=== PATIENT | female | born 1955 | race Caucasian/White ===

== ENCOUNTER 2020-01-17 13:34 | Outpatient (CLI) | payer MEDICARE, SELFPAY ==
--- NOTE | ~2020-01-17 | CT_ITS ---
EXAMINATION:CT lung screening DATE: 01/17/2020 14:14 INDICATION: Personal history of tobacco dependence. Current smoker with 51 pack year history. TECHNIQUE: Computed tomography (CT) of the chest was performed without intravenous contrast. Automate d exposure control and iterative reconstruction technique were employed. The dose-length product (DLP ) was 89.75 mGy-cm. COMPARISON: None. FINDINGS: There is mild emphysema. There is mild atelectasis bilaterally. There is mild scarring at t he lung apices. There are a few scattered 1-2 mm nodules in the lungs. No pleural effusion. The heart size is normal. There are coronary artery calcifications. No pericardial effusion. There is a small sliding hiatal hernia. There is mild thoracic spondylosis. IMPRESSION: 1. Lung-RADS category 2: Benign appearance or behavior. Continue annual screening with noncontrast lo w-dose chest CT in 12 months. Reviewed, dictated and finalized at location A. STERED NURSE FLOAT POOL IMPRESSION: 1. Lung-RADS category 2: Benign appearance or behavior. Continue annual screeni ng with noncontrast low-dose chest CT in 12 months.
--- NOTE | ~2020-01-17 | MM_ITS ---
EXAMINATION: MM screening go[place] BI w jose francisco HISTORY: Screening mammogram TECHNIQUE: Craniocaudal and mediolateral oblique 3-D tomosynthesis images were obtained and synthetic 2-D images were generated. CAD analysis was submitted and interpreted. COMPARISON: No prior mammogram is available for comparison at this institution. BREAST PARENCHYMAL COMPOSITION: There are scattered areas of fibroglandular density. FINDINGS: There are numerous bilateral benign calcifications. There is no evidence of suspicious mass , calcification, or architectural distortion to suggest malignancy in either breast. There has been n o suspicious interval change. IMPRESSION: 1. No mammographic evidence of malignancy. 2. Recommend routine screening mammography in one year. BI-RADS Category 2: Benign finding(s). Reviewed, dictated and finalized at location A. OR INVESTIGATOR
== END 2020-01-17 13:35 | disposition home or self-care (01) ==
PROVIDERS: PCP Internal Medicine; Visit Provider Nurse Practitioner
DX: Z12.31 Encounter for screening mammogram for malignant neoplasm of breast (principal); Z12.2 Encounter for screening for malignant neoplasm of respiratory organs; Z87.891 Personal history of nicotine dependence
CPT/HCPCS: 77063; 77067; G0297

== ENCOUNTER 2020-02-02 00:29 | Outpatient (CLI) | payer MEDICARE, SELFPAY ==
[2020-02-02 18:58] LABS: SARS-CoV-2 RNA PCR Negative
== END 2020-02-02 00:30 | disposition home or self-care (01) ==
LOC: ANHCOVIDDT 00:29
PROVIDERS: PCP Internal Medicine; Visit Provider Internal Medicine Gastroenterology
DX: Z01.812 Encounter for preprocedural laboratory examination (principal); Z20.828 Contact with and (suspected) exposure to other viral communicable diseases
CPT/HCPCS: 87635; C9803; U0003

== ENCOUNTER 2020-02-05 01:47 | Day surgery (SDC) | payer MEDICARE, SELFPAY ==
[2020-01-30 10:19] VITALS: BMI 31.2
--- NOTE | 2020-02-04 09:52 | WPDANESEPPF ---
Anes - Initial Pre Proc Eval Procedure: Operation Date: 02/05/20 11:15 Proposed Procedures p Screening Colonoscopy - Manuel Royal MD Date/Time: 02/04/20 09:52 Surgeon: Manuel Royal MD Pre Op Diagnosis: Neoplasm Screening Patient Data Age: 64 Gender: F Height: 1.6 m Weight: 80 kg Allergies Allergy/AdvReac Type Severity Reaction Status Date / Time morphine Allergy Unknown Unable to Verified 02/05/20 10:00 sleep Penicillins Allergy Unknown Rash Verified 02/05/20 10:00 Home Medications Medication Instructions Recorded Confirmed Type oxycodone myristate 18 mg capsule 18 mg PO BID 01/24/19 01/30/20 History sprinkle extended release 12hr(DON'T CRUSH) meloxicam 15 mg tablet 15 mg PO DAILY #90 tablet 10/23/19 01/30/20 Rx trazodone 50 mg tablet See Rx Instructions .ROUTE 12/24/19 01/30/20 Rx .COMPLEX #30 tablet sodium,potassium,mag sulfates 17.5 354 ml PO .COMPLEX #354 ml 12/25/19 Rx gram-3.13 gram-1.6 gram oral soln cyclobenzaprine 10 mg tablet See Rx Instructions .ROUTE 02/01/20 Rx .COMPLEX #90 tablet atorvastatin 20 mg tablet See Rx Instructions .ROUTE 02/04/20 Rx .COMPLEX #90 tablet paroxetine HCl [Paxil] 40 mg PO DAILY 02/05/20 01/30/20 History Patient hx anesthesia problems: none Family hx anesthesia problems: none PMFSH Past Medical History Medical History (Updated 02/04/20 @ 09:53 by Schuyler Cordova DO) Bipolar disorder Body mass index (bmi) 31.0-31.9, adult COPD (chronic obstructive pulmonary disease) Depressive disorder History of endometrial cancer History of tobacco abuse Mixed hyperlipidemia Neuropathy, lower extremity Social History Social History Smoking packs per day: 1 Smoking cigarettes per day: 20.0 Years smoked: 51 Smoking pack-years: 51.00 Smoking status: Current every day smoker Tobacco type: cigarettes Alcohol intake: current Drinks per week: 2 Substance use: never Substance use type: does not use Living arrangements: with family Spiritual care concerns: No Anes - Eval Final PreProcedure Day of Procedure 02/04/20 09:52 Patient weight: obese Heart: regular rate and rhythm Lungs: clear to auscultation and normal air movement Airway: Mallampati scale class II Neurological: alert and oriented Last oral intake: >/= 8 hours ASA classification: III Emergent: no Anesthetic plan: proceed Anesthesia type and monitoring: general GIVS and standard monitoring Informed Consent: The patient's anesthetic plan and its attendant risks and benefits were discussed with the patient/family/POA. Questions were solicited and answers provided to the satisfaction of the patient/family/POA.
[2020-02-05 10:03] VITALS: BP 162/93; PULSE 93; RESP 20; TEMP 36.6; O2SAT 98; BMI 29.8
[2020-02-05] MEDS: LACTATED RINGERS 1,000 ML 150 ML IV CONT (10:14)
--- NOTE | 2020-02-05 10:32 | PM.HPGS ---
History of Present Illness History of Present Illness Consent: Risks, benefits, and alternatives have been discussed and questions answered. Patient agrees to proceed with procedure. Chief complaint: Neoplasm Screening Narrative: Lydia Albert is a 64 year old female here for first screening colonoscopy Review of Systems Constitutional: Constitutional: Denies headache(s) and Denies weakness Eyes: Eyes: Denies blurry vision ENT: Reports Normal hearing present, Denies headache(s) and Denies neck pain Cardiovascular: Cardiovascular: Denies chest pain and Denies dyspnea Respiratory: Respiratory: Denies dyspnea Gastrointestinal: Gastrointestinal: Reports no additional gastrointestinal complaints Genitourinary: Genitourinary: Denies dysuria Musculoskeletal: Musculoskeletal: Denies neck pain Integumentary/Breasts: Skin/Breast: Denies dry skin Neurologic: Reports Normal hearing present, Denies headache(s) and Denies weakness Psychiatric: Psychiatric: Denies anxiety Endocrine: Endocrine: Denies change in body appearance Hematologic/Lymphatic: Hematologic/Lymphatic: Denies easy bleeding Allergic/Immunologic: Allergic/Immunologic: Denies urticaria [facility] Past Medical History Medical History (Updated 02/04/20 @ 09:53 by Schuyler Cordova, ) Bipolar disorder Body mass index (bmi) 31.0-31.9, adult COPD (chronic obstructive pulmonary disease) Depressive disorder History of endometrial cancer History of tobacco abuse Mixed hyperlipidemia Neuropathy, lower extremity Social History Social History (Reviewed 12/21/19 @ 12:32 by Chen Velazco [facility]) Smoking packs per day: 1 Smoking cigarettes per day: 20.0 Years smoked: 51 Smoking pack-years: 51.00 Smoking status: Current every day smoker Tobacco type: cigarettes Alcohol intake: current Drinks per week: 2 Substance use: never Substance use type: does not use Living arrangements: with family Spiritual care concerns: No Meds Home Medications and Allergies Home Medications Medication Instructions Recorded Confirmed Type oxycodone myristate 18 mg capsule 18 mg PO BID 01/24/19 01/30/20 History sprinkle extended release 12hr(DON'T CRUSH) meloxicam 15 mg tablet 15 mg PO DAILY #90 tablet 10/23/19 01/30/20 Rx trazodone 50 mg tablet See Rx Instructions .ROUTE 12/24/19 01/30/20 Rx .COMPLEX #30 tablet sodium,potassium,mag sulfates 17.5 354 ml PO .COMPLEX #354 ml 12/25/19 Rx gram-3.13 gram-1.6 gram oral soln cyclobenzaprine 10 mg tablet See Rx Instructions .ROUTE 02/01/20 Rx .COMPLEX #90 tablet atorvastatin 20 mg tablet See Rx Instructions .ROUTE 02/04/20 Rx .COMPLEX #90 tablet paroxetine HCl [Paxil] 40 mg PO DAILY 02/05/20 01/30/20 History Allergies Allergy/AdvReac Type Severity Reaction Status Date / Time morphine Allergy Unknown Unable to Verified 02/05/20 10:00 sleep Penicillins Allergy Unknown Rash Verified 02/05/20 10:00 Vital Signs Vital Signs - 24 hr 02/05/20 10:03 Temperature 97.9 F Pulse Rate 93 Respiratory Rate 20 Blood Pressure 162/93 H Pulse Oximetry 98 Exam Const: General: comfortable and no acute distress HENMT: General nose exam: Normal nares present Eyes: General: appearance normal, both eyes and all related structures Neck: Neck: no JVD Resp: Auscultation: clear to auscultation bilaterally Cardio: Rate: regular rate Rhythm: regular rhythm GI: Inspection: non-distended GI Palp: Yes Soft to palpation Skin: General skin exam: normal color Neuro: General: gait normal Speech: normal speech Extrem: General: normal to inspection Psych: Mental Status: mental status grossly normal Assessment and Plan Assessment and plan (1) Screening for colon cancer: Code(s): Z12.11 - Encounter for screening for malignant neoplasm of colon Status: Acute Assessment and Plan: will proceed with colonoscopy
[2020-02-05 10:59] VITALS: BP 119/75; PULSE 84; RESP 18; O2SAT 99
[2020-02-05 11:09] VITALS: BP 126/51; PULSE 80; RESP 22; O2SAT 99
[2020-02-05 11:19] VITALS: BP 136/77; PULSE 77; RESP 20; O2SAT 100
== END 2020-02-05 11:36 | disposition home or self-care (01) ==
PROVIDERS: PCP Internal Medicine; Visit Provider Internal Medicine Gastroenterology
PROC: 0DJD8ZZ Inspection of Lower Intestinal Tract, Via Natural or Artificial Opening Endoscopic (ICD-10-PCS; CPT 45378; principal; 2020-02-05 11:15)
DX: Z12.11 Encounter for screening for malignant neoplasm of colon (principal); D12.4 Benign neoplasm of descending colon; D12.3 Benign neoplasm of transverse colon; K57.30 Diverticulosis of large intestine without perforation or abscess without bleeding; K64.8 Other hemorrhoids; F31.9 Bipolar disorder, unspecified; J44.9 Chronic obstructive pulmonary disease, unspecified; F17.210 Nicotine dependence, cigarettes, uncomplicated; Z85.42 Personal history of malignant neoplasm of other parts of uterus; E78.2 Mixed hyperlipidemia; G57.90 Unspecified mononeuropathy of unspecified lower limb; E66.8 Other obesity; Z68.28 Body mass index [BMI] 28.0-28.9, adult
CPT/HCPCS: 45380; 45385; 88305; J2704; J7120

== ENCOUNTER 2021-06-04 17:36 | Outpatient (CLI) | payer MEDICARE, SELFPAY ==
--- NOTE | ~2021-06-04 | MM_ITS ---
EXAMINATION: MM screening [place] BI w jose francisco HISTORY: Screening mammogram TECHNIQUE: Craniocaudal and mediolateral oblique 3-D tomosynthesis images were obtained and synthetic 2-D images were generated. CAD analysis was submitted and interpreted. COMPARISON: 01/17/2020 bilateral screening mammogram BREAST PARENCHYMAL COMPOSITION: There are scattered areas of fibroglandular density. FINDINGS: There are several 5 mm or smaller masses in the lower central and lower outer right breast. There is suggestion of focal architectural distortion in the outer left breast at mid depth on CC pro jection. An approximately 1.5 x 1.9 cm asymmetric opacity is noted anteriorly in the mid to lower out er left breast on CC projection. Bilateral diagnostic mammography and bilateral breast ultrasound examination are recommended.. IMPRESSION: 1. Right breast masses and left architectural distortion and asymmetric opacity 2. Bilateral diagnostic mammography and bilateral breast ultrasound examination are recommended BI-RADS Category 0: Incomplete: Needs additional imaging evaluation. Reviewed, dictated and finalized at location A.
== END 2021-06-04 17:37 | disposition home or self-care (01) ==
LOC: ANHIMG 17:43
PROVIDERS: PCP Internal Medicine; Visit Provider Nurse Practitioner
DX: Z12.31 Encounter for screening mammogram for malignant neoplasm of breast (principal); R92.8 Other abnormal and inconclusive findings on diagnostic imaging of breast
CPT/HCPCS: 77063; 77067

== ENCOUNTER 2021-06-11 12:16 | Outpatient (CLI) | payer MEDICARE, SELFPAY ==
--- NOTE | ~2021-06-11 | MMUS_ITS ---
EXAMINATION: MM diagnostic goyo BI w jose francisco, US breast BI complete HISTORY: Follow-up bilateral breast masses TECHNIQUE: Additional 3-D tomosynthesis images of breasts were performed and synthetic 2-D images wer e generated. CAD analysis was submitted and interpreted. High resolution bilateral complete breast ul trasound was performed. COMPARISON: Comparison to multiple prior studies sequentially, with oldest reviewed study dated 04/2019. BREAST PARENCHYMAL COMPOSITION: FINDINGS: MAMMOGRAPHIC FINDINGS: There are developing bilateral breast masses some of which are partially obscured by fibroglandular t issue. The largest dominant masses located in the upper outer quadrant of the left breast, middle thi rd. There are benign-appearing breast calcifications. ULTRASOUND: Complete bilateral US of all 4 quadrants of the breasts and retroareolar region was reviewed. Right breast: There are multiple cysts of the breasts bilaterally of varying size. In addition in the right breast at 1:00, 3 cm from the nipple there is an oval circumscribed hypoechoic 6 mm mass witho ut posterior features or internal vascularity. In the right axilla there is a normal-appearing 9 mm l ymph node. Left breast: Multiple cysts, largest measuring approximately 1 cm. At 12:30, 1 cm from the nipple the re is an oval hypoechoic mass measuring 8 mm with parallel orientation, no internal vascularity and n o posterior features, likely benign. At 3:00, 1 cm from the nipple there is an irregular shaped hypoe choic mass with some angular margins measuring 8 mm maximum dimension. There is mixed posterior atten uation. No internal vascularity. In the left axilla there is normal. Lymph nodes. IMPRESSION: 1. Irregular hypoechoic mass of the left breast at 3:00, 1 cm from the nipple. Ultrasound-guided left breast biopsy recommended. BI-RADS Category 4. 2. Additional likely benign bilateral breast masses are identified by ultrasound. Six-month follow-up bilateral ultrasound recommended to assess stability. Reviewed, dictated and finalized at location A. IMPRESSION: 1. Irregular hypoechoic mass of the left breast at 3:00, 1 cm from the nipple. Ultrasound-guided left breast biopsy recommended. BI-RADS Category 4. 2. Additional likely benign bilateral breast masses are identified by ultrasoun d. Six-month follow-up bilateral ultrasound recommended to assess stability.
== END 2021-06-11 12:17 | disposition home or self-care (01) ==
LOC: ANHIMG 12:20
PROVIDERS: PCP Internal Medicine; Visit Provider Nurse Practitioner
DX: R92.8 Other abnormal and inconclusive findings on diagnostic imaging of breast (principal); N60.02 Solitary cyst of left breast; N60.01 Solitary cyst of right breast; N63.12 Unspecified lump in the right breast, upper inner quadrant; N63.25 Unspecified lump in the left breast, overlapping quadrants
CPT/HCPCS: 76641; 77062; 77066; G0279

== ENCOUNTER 2021-06-23 12:47 | Outpatient (CLI) | payer MEDICARE, SELFPAY ==
--- NOTE | ~2021-06-23 | MMUS_ITS ---
MM post biopsy invasive LT, US breast biopsy LT w image EXAMINATION: US GUIDED NEEDLE BIOPSY WITH VAC UUM ASSISTANCE DATE: 06/23/2021 15:32 CDT INDICATION: Left breast mass seen on recent examination. Ultrasound-guided core biopsy is requested to evaluate for malignancy. TECHNIQUE AND FINDINGS: The risks and potential benefits of the procedure were discussed with the patient, and written inform ed consent was obtained. After sterile preparation of the left breast, 1% lidocaine was utilized for local anesthesia. 1% lidocaine with epinephrine was used for deep anesthesia. A 10G vacuum-assisted biopsy gun needle was advanced through to the outer edge of the region of inter est from a superior approach utilizing sonographic guidance. A total of 4 tissue core samples were o btained through the lesion. An Inrad tissue marker clip was then placed at the biopsy site. Hemostas is was achieved. The patient tolerated procedure well and there was no evidence of immediate complication. The patien t was given verbal instructions partly is from the department. Left breast mammograms to document ti ssue marker clip placement. The tissue samples were submitted to surgical pathology for histologic an alysis. IMPRESSION: 1. Successful ultrasound-guided vacuum-assisted biopsy of left breast mass with tissue marker placem ent. Please refer to pathology report for histologic analysis. Reviewed, dictated and finalized at location A. IMPRESSION: 1. Successful ultrasound-guided vacuum-assisted biopsy of left breast mass wit h tissue marker placement. Please refer to pathology report for histologic anal ysis.
== END 2021-06-23 12:48 | disposition home or self-care (01) ==
PROVIDERS: PCP Internal Medicine; Visit Provider Nurse Practitioner
DX: R92.8 Other abnormal and inconclusive findings on diagnostic imaging of breast (principal)
CPT/HCPCS: 19083; 88305; A4648

== ENCOUNTER 2021-11-18 13:58 | Emergency (ER) | payer MEDICARE, SELFPAY ==
[2021-11-18 14:03] VITALS: BP 149/86; PULSE 100; RESP 15; TEMP 36.7; O2SAT 99
[2021-11-18] MEDS: DOXYCYCLINE HYCLATE 100 MG TABLET PO (14:33)
--- NOTE | 2021-11-18 14:57 | ED.FALL ---
HPI - Fall General Chief Complaint: Fall Stated Complaint: fall Time Seen by Provider: 11/18/21 14:13 History of Present Illness HPI Narrative: Patient is a 66-year-old female here for evaluation of 2 lesions to her shins sustained in an accident 5 days ago. States that she was cleaning up broken glass when she accidentally scraped her bilateral shins against a fragment of glass. She cleansed the wound with soap and water in addition to hydrogen peroxide. Since then she has been covering the area with antibiotic ointment but she notes that there is some surrounding redness to the wounds which prompted her ED evaluation. She denies any fevers, chills, nausea, vomiting or shortness of breath. Her tetanus is up-to-date as of 2016. Related Data Home Medications Medication Instructions Recorded Confirmed omega-3 fatty acids 1,000 mg 1,000 mg PO DAILY 12/15/20 06/22/21 capsule (Fish Oil Concentrate) cholecalciferol (vitamin D3) 50 50 mcg PO DAILY 06/22/21 06/22/21 mcg (2,000 unit) tablet Allergies Allergy/AdvReac Type Severity Reaction Status Date / Time morphine Allergy Intermediate Unable to Verified 11/18/21 14:11 sleep Penicillins Allergy Unknown Rash Verified 11/18/21 14:11 Review of Systems Review of Systems: Gen: Denies fevers or chills Eyes: Denies eye pain or visual change ENT: Denies congestion Respiratory: Denies shortness of breath or cough CV: Denies chest pain or palpitations GI: Denies abdominal pain nausea, emesis or diarrhea : denies burning, urgency, frequency or hematuria Musculoskeletal: Denies back pain or muscle pain Neuro: Denies numbness, tingling, weakness or focal weakness Skin: Reports scrapes to bilateral shins Except as documented, all other systems reviewed and negative PMF Past Medical History Medical History Bipolar disorder Body mass index (bmi) 31.0-31.9, adult COPD (chronic obstructive pulmonary disease) Depressive disorder History of endometrial cancer History of tobacco abuse Mixed hyperlipidemia Neuropathy, lower extremity Social History Social History Smoking packs per day: 0.5 Smoking cigarettes per day: 10.0 Years smoked: 51 Smoking pack-years: 25.50 Smoking status: Current some day smoker Tobacco type: cigarettes Alcohol intake: current Drinks per week: 1 Alcohol use details: social Substance use: never Substance use type: does not use Gender identity (if verbalized by the patient): Female Spiritual care concerns: No Exam Narrative: APPEARANCE: Well appearing, no pain in distress, well-nourished. Head: Normocephalic and atraumatic. EYES: PERRLA/EOMI, conjunctivae clear NOSE: No nasal drainage EARS: External ear normal in appearance THROAT: Oropharynx is clear. Mucous membranes are moist. NECK: Supple. No adenopathy, no masses. RESPIRATORY: Airway patent, respirations nonlabored. Clear to auscultation bilaterally, no rales, rhonchi, wheezing. CARDIOVASCULAR: Regular rate and rhythm without murmurs, rubs, or gallops. ABDOMINAL: Normoactive bowel sounds. Soft, nontender, nondistended. No rebound tenderness or guarding. MUSCULOSKELETAL: Extremities are warm and well-perfused. Moves all extremities well. No edema. NEURO: Normal speech. No focal neurologic deficits. SKIN: Patient has a 2 x 3 cm abrasion to the right turner with a 0.5 cm circumferential erythema. Central eschar. There is a 1 x 2 cm abrasion to the left anterior turner with about 1 mm of surrounding erythema. PSYCHIATRIC: Normal affect/mood. Course Vital Signs Vital signs: Vital Signs Temperature 98.1 F 11/18/21 14:03 Pulse Rate 100 11/18/21 14:03 Respiratory Rate 15 11/18/21 14:03 Blood Pressure 149/86 H 11/18/21 14:03 Pulse Oximetry 99 11/18/21 14:03 Temperature 98.1 F 11/18/21 14:03 Pulse Rate 100 11/18/21 14:03 Res
== END 2021-11-18 14:50 | disposition home or self-care (01) ==
LOC: ANHED 14:37
PROVIDERS: Emergency Provider Emergency Medicine; PCP Internal Medicine
DX: L03.116 Cellulitis of left lower limb (principal); L03.115 Cellulitis of right lower limb; J44.9 Chronic obstructive pulmonary disease, unspecified; E78.2 Mixed hyperlipidemia; G62.9 Polyneuropathy, unspecified; F31.9 Bipolar disorder, unspecified; Z85.44 Personal history of malignant neoplasm of other female genital organs; F17.210 Nicotine dependence, cigarettes, uncomplicated
CPT/HCPCS: 99283; A9270

== ENCOUNTER 2022-02-23 12:18 | Emergency (ER) | payer MEDICARE, SELFPAY ==
[2022-02-23 12:40] VITALS: BP 108/60; PULSE 99; RESP 16; TEMP 36.3; O2SAT 98
[2022-02-23 13:32] LABS: Influenza A QL RT-PCR Negative (Negative); Influenza B QL RT-PCR Negative (Negative); SARS-CoV-2 RNA PCR Positive
--- NOTE | 2022-02-23 13:39 | ED.URI ---
HPI - URI/Sore Throat General Chief Complaint: Upper Respiratory Infection Stated Complaint: upper respiratory symptoms Time Seen by Provider: 02/23/22 13:02 History of Present Illness HPI Narrative: 66-year-old female presents to the emergency room for evaluation of sinus congestion, postnasal drip, rhinorrhea, sneezing diarrhea and body aches intermittently for 2 weeks. States symptoms of gotten worse over the past couple of days. Denies any shortness of breath or difficulty breathing. Denies fever. Denies chest pain. Has been taking multiple [id number] medications with limited improvement. Related Data Home Medications Medication Instructions Recorded Confirmed omega-3 fatty acids 1,000 mg 1,000 mg PO DAILY 12/15/20 01/05/22 capsule (Fish Oil Concentrate) cholecalciferol (vitamin D3) 50 50 mcg PO DAILY 06/22/21 01/05/22 mcg (2,000 unit) tablet Allergies Allergy/AdvReac Type Severity Reaction Status Date / Time morphine Allergy Intermediate Unable to Verified 01/05/22 13:07 sleep Penicillins Allergy Unknown Rash Verified 01/05/22 13:07 [facility] Past Medical History Medical History Bipolar disorder Body mass index (bmi) 31.0-31.9, adult COPD (chronic obstructive pulmonary disease) Depressive disorder History of endometrial cancer History of tobacco abuse Mixed hyperlipidemia Neuropathy, lower extremity Social History Social History (Updated 01/05/22 @ 13:18 by Brianne Gomez MA) Smoking packs per day: 0.5 Smoking cigarettes per day: 10.0 Years smoked: 51 Smoking pack-years: 25.50 Smoking status: Current some day smoker Tobacco type: cigarettes Alcohol intake: current Drinks per week: 1 Alcohol use details: social Substance use: never Substance use type: does not use Lack of Transportation: No Lack of Food: Sometimes True Current Housing: I Have Housing Concerned About Future Housing: No Difficulty Paying Gas/Electric Bills: No Difficulty Paying for Meds: YES Currently Unemployed: No Education: Trade/Vocational Certificate Difficulty w/ Childcare or Family Care: No Gender identity (if verbalized by the patient): Female Spiritual care concerns: No Course Vital Signs Vital signs: Vital Signs Temperature 36.3 C L 02/23/22 12:40 Pulse Rate 99 02/23/22 12:40 Respiratory Rate 16 02/23/22 12:40 Blood Pressure 108/60 02/23/22 12:40 Pulse Oximetry 98 02/23/22 12:40 Temperature 36.3 C L 02/23/22 12:40 Pulse Rate 99 02/23/22 12:40 Respiratory Rate 16 02/23/22 12:40 Blood Pressure 108/60 02/23/22 12:40 Pulse Oximetry 98 02/23/22 12:40 MDM - URI/Sore Throat Lab Data Labs: Lab Results 02/23/22 Range/Units 12:48 Influenza A (RT-PCR) Negative (Negative) Influenza B (RT-PCR) Negative (Negative) SARS-CoV-2 RNA (RT-PCR) Positive A Discharge Plan Discharge Clinical Impression: COVID Patient Disposition: Home, Self-Care Condition: Stable Instructions: Antibiotic Form, COVID-19 (Coronavirus Disease 2019) (ED) Additional Instructions: Male today Tylenol and ibuprofen as needed for body aches. Continue taking Mucinex DM for your cough and antidiarrheal medicine for diarrhea. Prescriptions: No Action omega-3 fatty acids [Fish Oil Concentrate] 1,000 mg capsule 1,000 mg PO DAILY cholecalciferol (vitamin D3) 50 mcg (2,000 unit) tablet 50 mcg PO DAILY rosuvastatin 40 mg tablet 40 mg PO DAILY Qty: 90 1RF pregabalin [Lyrica] 100 mg capsule 100 mg PO BID Qty: 60 3RF zolpidem 10 mg tablet 10 mg PO QHS PRN (Reason: insomnia) Qty: 30 3RF Farxiga 5 mg tablet 5 mg PO DAILY Qty: 30 6RF cyclobenzaprine 10 mg tablet See Rx Instructions .ROUTE .COMPLEX Qty: 270 1RF Dose Instruction: TAKE 1 TABLET BY MOUTH 3 TIMES DAILY Rx Instructions: TAKE 1 TABLET BY MOUTH 3 TIMES DA
== END 2022-02-23 14:05 | disposition home or self-care (01) ==
PROVIDERS: Emergency Medicine; Emergency Provider Nurse Practitioner Family; PCP Internal Medicine
DX: U07.1 COVID-19 (principal)
CPT/HCPCS: 87636; 99283

== ENCOUNTER 2022-06-16 14:51 | Outpatient (CLI) | payer MEDICARE, SELFPAY ==
--- NOTE | ~2022-06-16 | CT_ITS ---
EXAMINATION:CT lung screening DATE: 06/16/2022 15:16 INDICATION: Personal history of nicotine dependence. Current smoker with 40 pack year history. TECHNIQUE: Computed tomography (CT) of the chest was performed without intravenous contrast. Automate d exposure control and iterative reconstruction technique were employed. The dose-length product (DLP ) was 151.56 mGy-cm. COMPARISON: Chest CT 01/17/2020 FINDINGS: There is mild emphysema. There is mild scarring at the lung apices. There is mild atelectas is in the lower lobes. There is a chronic 4 mm nodule in left lower lobe. No pleural effusion. The he art size is normal. There are coronary artery calcifications. No pericardial effusion. There is a sma ll sliding hiatal hernia. Thoracolumbar dextroscoliosis is noted. There are changes of posterior fusi on procedure in lumbar spine. IMPRESSION: 1. Lung-RADS category 2: Benign appearance or behavior. Continue annual screening with noncontrast lo w-dose chest CT in 12 months. Reviewed, dictated and finalized at location A. IMPRESSION: 1. Lung-RADS category 2: Benign appearance or behavior. Continue annual screeni ng with noncontrast low-dose chest CT in 12 months.
== END 2022-06-16 14:52 | disposition home or self-care (01) ==
PROVIDERS: PCP Family Medicine; Visit Provider Family Medicine
DX: Z12.2 Encounter for screening for malignant neoplasm of respiratory organs (principal); F17.210 Nicotine dependence, cigarettes, uncomplicated
CPT/HCPCS: 71271

== ENCOUNTER 2022-08-25 14:52 | Inpatient (IN) | payer MEDICARE, SELFPAY ==
--- NOTE | ~2022-08-25 | US_ITS ---
EXAMINATION: US renal BI DATE: 08/26/2022 09:16 INDICATION: Acute renal failure TECHNIQUE: Multiple grayscale and Doppler ultrasound images of the kidneys were obtained. COMPARISON: CT, 08/25/2022 FINDINGS: The right kidney measures 11.1 x 5.7 x 6.0 cm. The small right kidney stone noted on the [facility] CT is not definitely identified. The left kidney measures 12.8 x 7.1 x 5.4 cm. The kidneys d emonstrate normal parenchymal echogenicity. There is no hydronephrosis. The bladder is normal. IMPRESSION: 1. Normal kidneys without hydronephrosis. Reviewed, dictated and finalized at location L.
--- NOTE | ~2022-08-25 | CT_ITS ---
EXAMINATION: CT abdomen pelvis wo con DATE: 08/25/2022 16:35 INDICATION: Abdominal pain. Diarrhea. TECHNIQUE: Computed tomography (CT) of the abdomen and pelvis was performed without intravenous contr ast. Automated exposure control and iterative reconstruction technique were employed. The dose-length product was 803.19 mGy-cm. COMPARISON: Chest CT 06/16/2022 FINDINGS: The visualized portions of the lung bases demonstrate mild atelectasis. No pleural effusion . The heart size is normal. There are coronary artery calcifications. No pericardial effusion. There is a small sliding hiatal hernia. The liver is normal. The gallbladder is distended. The spleen, panc reas, adrenal glands, and left kidney are normal. There is a 2 mm stone in right kidney. There is man cified atherosclerosis of the aorta and many of the other arteries. The appendix is normal. There are no dilated loops of bowel. There are no pathologically enlarged lymph nodes. There is no free intrap eritoneal fluid. There is severe lumbar spondylosis. There are changes of posterior fusion procedures at L2-L5. IMPRESSION: 1. Small sliding hiatal hernia. 2. Gallbladder distention, which may be secondary to fasting. Correlate with physical exam to exclude acute cholecystitis. Reviewed, dictated and finalized at location E. IMPRESSION: 1. Small sliding hiatal hernia. 2. Gallbladder distention, which may be secondary to fasting. Correlate with ph ysical exam to exclude acute cholecystitis.
--- NOTE | ~2022-08-25 | US_ITS ---
EXAMINATION: US abdomen limited DATE: 08/25/2022 17:42 INDICATION: Abnormal liver function tests. Gallbladder distention. TECHNIQUE: Multiple grayscale and Doppler ultrasound images of the abdomen were obtained. COMPARISON: CT abdomen and pelvis 08/25/2022 FINDINGS: The visualized portions of the head, body, and tail of the pancreas are normal. The liver i s normal without focal lesion. There is normal flow in main portal vein. The gallbladder is distended . No gallstones or gallbladder wall thickening. There was no sonographic Azevedo sign. The common duct is mildly dilated and measures 8 mm. IMPRESSION: 1. Mildly dilated common duct. 2. Gallbladder distention. No specific evidence of acute cholecystitis. Reviewed, dictated and finalized at location E.
[2022-08-25 14:57] VITALS: BP 154/84; PULSE 78; RESP 16; TEMP 36.5; O2SAT 98
[2022-08-25 15:46] LABS: Basophils Absolute Auto 0.1 K/mm3 (0.0-0.1); Basophils Percent Auto 0.8 % (0.2-1.2); Eosinophils Absolute Auto 0.1 K/mm3 (0-0.3); Eosinophils Percent Auto 1.8 % (0-4.4); Hematocrit 41.5 % (37.0-47.0); Hemoglobin 14.1 g/dL (12.0-15.0); Immature Granulocyte Absolute 0.02 K/mm3 (0.00-0.031); Immature Granulocyte Percent A 0.3 % (0-0.5); Lymphocytes Absolute Auto 1.49 K/mm3 (0.9-3.2); Lymphocytes Percent Auto 24.3 % (18.3-44.2); Mean Corpuscular Hemoglobin 30.5 pg (26-34); Mean Corpuscular Volume 89.6 fl (80-100); Mean Platelet Volume 10.9 fl (7.4-10.4); Monocytes Absolute Auto 0.5 K/mm3 (0.1-0.6); Monocytes Percent Auto 8.3 % (2.6-8.5); Neutrophils Percent Auto 64.5 % (45.5-73.1); Platelet Count Result 218 k/mm3 (150-375); Red Blood Count 4.63 M/mm3 (4.2-5.4); White Blood Count 6.1 K/mm3 (4.5-10.0)
[2022-08-25 15:53] LABS: Alanine Aminotransferase 542 U/L (6-35); Albumin Level 4.6 g/dL (3.5-5.1); Alkaline Phosphatase 172 U/L (38-126); Anion Gap 15 mmol/L (8-16); Aspartate Amino Transferase 332 U/L (14-36); Bilirubin,Total 0.7 mg/dL (0.2-1.3); Blood Urea Nitrogen 72 mg/dL (7-17); Calcium 9.5 mg/dL (8.4-10.2); Carbon Dioxide 21 mmol/L (22-30); Chloride 104 mmol/L (98-107); Estimated CRCL calculation 7 ml/min; Estimated Glomerular Filt Rate 6; Glucose 152 mg/dL (65-110); Lipase 171 U/L (23-300); Potassium 4.3 mmol/L (3.4-5.0); Sodium 140 mmol/L (137-145)
--- NOTE | 2022-08-25 16:23 | ED.NAVMDI ---
HPI - Nausea/Vomiting/Diarrhea General Chief complaint: Nausea/Vomiting/Diarrhea <Valarie Clark PA-C - Last Filed: 08/25/22 18:27> Stated complaint: V/d <DIXIE Tobias Last Filed: 08/25/22 18:27> Time Seen by Provider: 08/25/22 16:04 <DIXIE Tobias Last Filed: 08/25/22 18:27> Source: patient <DIXIE Tobias Last Filed: 08/25/22 18:27> Mode of arrival: ambulatory <DIXIE Tobias Last Filed: 08/25/22 18:27> Limitations: no limitations <DIXIE Tobias Last Filed: 08/25/22 18:27> History of Present Illness HPI Narrative: This is a 66-year-old female that presents to the emergency department for vomiting and diarrhea. Reports over the weekend she started having vomiting. Over the last couple of days she has had several episodes of loose stools. She does report history of C. difficile, although reports her stools are not watery and she has not recently had any antibiotics. Reports bilateral flank pain. Reports some dysuria. Denies fever or hematuria. <DIXIE Tobias Last Filed: 08/25/22 18:27> Related Data Home medications: Home Medications Medication Instructions Recorded Confirmed omega-3 fatty acids 1,000 mg 1,000 mg PO DAILY 12/15/20 04/05/22 capsule (Fish Oil Concentrate) cholecalciferol (vitamin D3) 50 50 mcg PO DAILY 06/22/21 04/05/22 mcg (2,000 unit) tablet <DIXIE Tobias Last Filed: 08/25/22 18:27> Allergies/Adverse reactions: Allergies Allergy/AdvReac Type Severity Reaction Status Date / Time morphine Allergy Intermediate Unable to Verified 08/25/22 14:53 sleep Penicillins Allergy Unknown Rash Verified 08/25/22 14:53 <DIXIE Tobias Last Filed: 08/25/22 18:27> Review of Systems Review of Systems: CONSTITUTIONAL: Denies fever GASTROINTESTINAL: Reports abdominal pain, nausea, vomiting, and diarrhea. GENITOURINARY: Reports dysuria. Denies hematuria. MUSCULOSKELETAL: Reports back/flank pain <Valarie Clark PA-C - Last Filed: 08/25/22 18:27> All systems reviewed & are unremarkable except as noted in HPI and below <Valarie Clark PA-C - Last Filed: 08/25/22 18:27> PMFSH Past Medical History Medical History: Medical History Anxiety disorder Bipolar disorder Body mass index (bmi) 31.0-31.9, adult COPD (chronic obstructive pulmonary disease) Depressive disorder History of endometrial cancer History of tobacco abuse Insomnia Lumbar degenerative disc disease Mixed hyperlipidemia Neuropathy, lower extremity <Valarie Clark PA-C - Last Filed: 08/25/22 18:27> Social History Social History: Social History Smoking packs per day: 0.5 Smoking cigarettes per day: 10.0 Years smoked: 51 Smoking pack-years: 25.50 Smoking status: Current some day smoker Tobacco type: cigarettes Alcohol intake: never Substance use: current Substance use type: marijuana Lack of Transportation: No Lack of Food: Sometimes True Current Housing: I Have Housing Concerned About Future Housing: No Difficulty Paying Gas/Electric Bills: No Difficulty Paying for Meds: YES Currently Unemployed: No Education: Trade/Vocational Certificate Difficulty w/ Childcare or Family Care: No Living arrangements: with family Gender identity (if verbalized by the patient): Female Spiritual care concerns: No <Valarie Clark PA-C - Last Filed: 08/25/22 18:27> Exam Narrative: GENERAL: Well-appearing, well-nourished, and in no acute distress. HEAD: Normocephalic, atraumatic. EYES: EOMI. ENT: Mucous membranes dry. Oropharynx without tonsillar hypertrophy exudate or other lesions. CHEST: Clear to auscultation. No respiratory distress. No wheezes rales or rhonchi HEART: Regular rate and rhythm. No murmur heard. Normal peripheral pulses. A
[2022-08-25] MEDS: SODIUM CHLORIDE 0.9% IV 1,000 ML 999 ML IV CONT (16:46)
[2022-08-25 16:48] VITALS: BP 166/85; PULSE 62; RESP 17; O2SAT 100
[2022-08-25 17:16] LABS: Creatine Kinase 440 U/L (30-135)
[2022-08-25 17:30] VITALS: BP 151/94; PULSE 63; RESP 16; O2SAT 100
[2022-08-25 17:43] LABS: Appearance Urine Cloudy (Clear); Bacteria Urine 4+ /hpf; Bilirubin Urine Negative (Negative); Blood Urine 3+ (Negative); Color Urine Yellow (Yellow); Glucose Urine UA Negative (Negative); Ketones Urine Negative (Negative); Leukocyte Esterase Ur 3+ LEU/UL (Negative); Need Manual Microscopic Reviewed; Nitrate Urine Positive (Negative); Non Pathogenic Casts 0-2; Protein Urine 2+ mg/dL (Negative); RBC Urine 0-2 /hpf (0-2); Specific Grav Ur 1.013 (1.001-1.035); Squamous Epithelial Cell Urine None seen /hpf (Few); Urobilinogen Urine 0.2 mg/dL (<2.0); WBC Urine >100 /hpf
[2022-08-25 17:44] LABS: Add Urine Microscopic? YES
[2022-08-25 18:16] LABS: Creatinine Urine 68.7 mg/dL; Sodium Urine Random 37 meq/L
[2022-08-25] MEDS: diphenhydrAMINE HCl INJ 50 MG/ML VIAL 25 MG IV PUSH (18:31)
[2022-08-25] MEDS: SODIUM CHLORIDE 0.9% IV 1,000 ML 125 ML IV CONT (18:31)
[2022-08-25] MEDS: METOCLOPRAMIDE HCL INJ 10 MG/2 ML VIAL IV PUSH (18:31)
[2022-08-25 19:24] VITALS: BP 138/71; PULSE 71; RESP 18; O2SAT 98
--- NOTE | 2022-08-25 19:24 | PC.NURSE ---
report received from Yissel SKELTON RN
[2022-08-25 19:49] VITALS: BMI 32.8
[2022-08-25 20:00] VITALS: O2SAT 96
[2022-08-25 20:46] VITALS: BP 157/67; PULSE 62; RESP 16; TEMP 36.6; O2SAT 99
[2022-08-25] MEDS: ONDANSETRON INJ 4 MG/2 ML VIAL IV PUSH (20:47)
--- NOTE | 2022-08-25 21:32 | PM.IMHP ---
H&P: HPI History of Present Illness Date/Time: 08/25/22 21:32 Chief Complaint: Nausea vomiting and diarrhea Narrative: This is a 66-year-old female patient who has been complaining of nausea vomiting and diarrhea for at least 4 days. The patient stated that she has tried several [id number] medications to try to get the watery stools a stop. Now today she has not had any further. She denies any fever or chills or any hematuria. She stated that she does have a history of C difficile I will and has not been on any recent antibiotics. Her white count is not elevated. Her BUN is 72 creatinine 7.2. GFR 7. The patient was started on IV fluids, Zofran, Reglan, Benadryl, and Rocephin. Abdominal pelvis CT was read as the following. Small sliding hiatal hernia. 2. Gallbladder distention, which may be secondary to fasting. Correlate with physical exam to exclude acute cholecystitis. Abdominal ultrasound was read as a following1. Mildly dilated common duct. 2. Gallbladder distention. No specific evidence of acute cholecystitis. The patient is being admitted to observation status on the date of service 08/25/2022. Review of Systems Review of Systems: All systems reviewed & are unremarkable except as noted in HPI and below Constitutional: Constitutional: Reports as per HPI and Reports no additional constitutional complaints Eyes: Eyes: Reports as per HPI and Reports no additional eye complaints ENT: Reports system reviewed and no additional complaints, except as documented and Reports Normal hearing present Cardiovascular: Cardiovascular: Reports no additional cardiovascular complaints Respiratory: Respiratory: Reports no additional respiratory complaints and Reports no additional respiratory complaints Gastrointestinal: Gastrointestinal: Reports as per HPI and Reports no additional gastrointestinal complaints Musculoskeletal: Musculoskeletal: Reports no additional musculoskeletal complaints Integumentary/Breasts: Skin/Breast: Reports system reviewed and no additional complaints, except as docu and Reports as per HPI Neurologic: Reports system reviewed and no additional complaints, except as documented, Reports as per HPI and Reports Normal hearing present Psychiatric: Psychiatric: Reports no additional psychiatric complaints and Reports as per HPI Endocrine: Endocrine: Reports no additional endocrine complaints Hematologic/Lymphatic: Hematologic/Lymphatic: Reports no additional hematologic/lymphatic complaints Allergic/Immunologic: Allergic/Immunologic: Reports no additional allergic/immunologic complaints [facility] Past Medical History Medical History (Updated 08/26/22 @ 00:13 by Anu Gale NP) Abnormal mammogram of both breasts Abnormal mammogram of left breast Anxiety disorder Bipolar disorder Body mass index (bmi) 31.0-31.9, adult COPD (chronic obstructive pulmonary disease) Depressive disorder Encounter for vitamin deficiency screening History of endometrial cancer History of tobacco abuse Insomnia Lumbar degenerative disc disease Mixed hyperlipidemia Neuropathy, lower extremity Screening for colon cancer Surgical History Surgical History (Updated 08/26/22 @ 00:13 by Anu Gale NP) H/O breast biopsy H/O colonoscopy H/O: hysterectomy History of back surgery Metal saud X2 Family History Family History (Updated 08/26/22 @ 00:09 by Anu Gale NP) Unknown No problems noted. Social History Social History (Updated 08/26/22 @ 00:10 by Anu Gale NP) Social History: The patient stated that she stop smoking yesterday. She is . She has 1 biological son. The patient stated that she does use marijuana gummies. She lives with her and is retired. 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 Code status full code Smoking packs per day: 0.5 Smoking cigarettes per day: 10.0 Years smoked: 51 Smoking pack-years: 25.50 Smoking status: Current some day smoker
[2022-08-26] MEDS: ALPRAZolam (*CRX) 0.25 MG TABLET PO ×4 (00:01→21:11)
[2022-08-26] MEDS: ZOLPIDEM TARTRATE (*CRX) 5 MG TABLET 10 MG PO ×2 (00:01→21:11)
--- NOTE | 2022-08-26 00:53 | PC.NURSE ---
pt up to [facility] several times no bm this shift
[2022-08-26 01:01] LABS: Anion Gap 10 mmol/L (8-16); Blood Urea Nitrogen 66 mg/dL (7-17); Calcium 8.5 mg/dL (8.4-10.2); Carbon Dioxide 20 mmol/L (22-30); Chloride 108 mmol/L (98-107); Estimated CRCL calculation 8 ml/min; Estimated Glomerular Filt Rate 7; Glucose 90 mg/dL (65-110); Potassium 3.9 mmol/L (3.4-5.0); Sodium 138 mmol/L (137-145)
[2022-08-26] MEDS: ONDANSETRON INJ 4 MG/2 ML VIAL IV PUSH ×3 (02:42→23:08)
[2022-08-26] MEDS: SODIUM CHLORIDE 0.9% IV 1,000 ML 125 ML IV CONT (04:24)
[2022-08-26 04:55] VITALS: BP 121/76; PULSE 62; RESP 16; TEMP 36.3; O2SAT 100
[2022-08-26 06:39] LABS: Basophils Absolute Auto 0.1 K/mm3 (0.0-0.1); Eosinophils Absolute Auto 0.2 K/mm3 (0-0.3); Hematocrit 36.2 % (37.0-47.0); Hemoglobin 11.7 g/dL (12.0-15.0); Immature Granulocyte Absolute 0.01 K/mm3 (0.00-0.031); Immature Granulocyte Percent A 0.1 % (0-0.5); Lymphocytes Absolute Auto 2.64 K/mm3 (0.9-3.2); Lymphocytes Percent Auto 38.3 % (18.3-44.2); Mean Corpuscular HGB Conc 32.3 g/dl (32-36); Mean Corpuscular Hemoglobin 29.8 pg (26-34); Mean Corpuscular Volume 92.3 fl (80-100); Mean Platelet Volume 11.1 fl (7.4-10.4); Monocytes Absolute Auto 0.8 K/mm3 (0.1-0.6); Monocytes Percent Auto 11.3 % (2.6-8.5); Neutrophils Absolute Auto 3.2 K/mm3 (1.3-6.7); Neutrophils Percent Auto 46.3 % (45.5-73.1); Platelet Count Result 181 k/mm3 (150-375); Red Blood Count 3.92 M/mm3 (4.2-5.4); Red Cell Distribution Width 14.1 % (11.5-14.5); White Blood Count 6.9 K/mm3 (4.5-10.0)
[2022-08-26 06:46] LABS: Lactic Acid Reflex 0.6 mmol/L (0.7-2.0)
[2022-08-26 06:49] LABS: Alanine Aminotransferase 399 U/L (6-35); Albumin Level 3.7 g/dL (3.5-5.1); Alkaline Phosphatase 125 U/L (38-126); Anion Gap 6 mmol/L (8-16); Aspartate Amino Transferase 236 U/L (14-36); Bilirubin,Total 0.5 mg/dL (0.2-1.3); Blood Urea Nitrogen 62 mg/dL (7-17); Calcium 8.3 mg/dL (8.4-10.2); Carbon Dioxide 23 mmol/L (22-30); Chloride 110 mmol/L (98-107); Estimated CRCL calculation 9 ml/min; Estimated Glomerular Filt Rate 7; Glucose 82 mg/dL (65-110); Lipase 122 U/L (23-300); Magnesium 2.7 mg/dL (1.6-2.3); Potassium 3.8 mmol/L (3.4-5.0); Sodium 139 mmol/L (137-145)
[2022-08-26] MEDS: PREGABALIN (*CRX) 50 MG CAPSULE 100 MG PO ×3 (09:12→17:41)
[2022-08-26] MEDS: HYDROcodone/acetaminophen (*CRX) 10-325 MG TABLET 1 TAB PO ×3 (09:12→21:10)
[2022-08-26] MEDS: CYCLOBENZAPRINE HCL 10 MG TABLET BY MOUTH ×3 (09:12→17:41)
[2022-08-26] MEDS: ROSUVASTATIN 10 MG TABLET 40 MG PO (09:13)
[2022-08-26] MEDS: PARoxetine 20 MG TABLET BY MOUTH (09:13)
[2022-08-26] MEDS: OMEGA 3 POLYUNSAT FATTY ACIDS 1 GM CAP 2 GM PO ×2 (09:13→17:41)
--- NOTE | 2022-08-26 10:50 | PM.IMPN ---
Progress Note: A&P Assessment and Plan (1) Acute kidney failure: Qualifiers: Acute renal failure type: unspecified Qualified Code(s): N17.9 - Acute kidney failure, unspecified Code(s): N17.9 - Acute kidney failure, unspecified Status: Acute Assessment and Plan: Improving. Continue IV fluids. most likely this is prerenal azotemia secondary to dehydration. consulted Nephrology. Renal ultrasound unremarkable. Monitor BMP (2) Acute UTI: Code(s): N39.0 - Urinary tract infection, site not specified Status: Acute Assessment and Plan: Continue IV Rocephin. urine and blood cultures are pending. (3) Anxiety disorder: Code(s): F41.9 - Anxiety disorder, unspecified Status: Acute Assessment and Plan: Continue with alprazolam (4) Mixed hyperlipidemia: Code(s): E78.2 - Mixed hyperlipidemia Status: Acute Assessment and Plan: Continue with rosuvastatin monitor liver enzymes (5) Chronic insomnia: Code(s): F51.04 - Psychophysiologic insomnia Status: Acute Assessment and Plan: The patient takes Ambien at home. (6) Lumbar degenerative disc disease: Code(s): M51.36 - Other intervertebral disc degeneration, lumbar region Status: Acute Assessment and Plan: Continue with patient's home medication of paroxetine for the chronic pain and Vicodin as well. She also takes cyclobenzaprine for her chronic lower back pain. Subjective Date/time seen: 08/26/22 10:50 Interval history: Patient is a little confused Review of Systems Review of Systems: All systems reviewed & are unremarkable except as noted in HPI and below Constitutional: Constitutional: Reports as per HPI and Reports no additional constitutional complaints Eyes: Eyes: Reports as per HPI and Reports no additional eye complaints ENT: Reports system reviewed and no additional complaints, except as documented and Reports Normal hearing present Cardiovascular: Cardiovascular: Reports no additional cardiovascular complaints Respiratory: Respiratory: Reports no additional respiratory complaints and Reports no additional respiratory complaints Gastrointestinal: Gastrointestinal: Reports as per HPI and Reports no additional gastrointestinal complaints Musculoskeletal: Musculoskeletal: Reports no additional musculoskeletal complaints Integumentary/Breasts: Skin/Breast: Reports system reviewed and no additional complaints, except as docu and Reports as per HPI Neurologic: Reports system reviewed and no additional complaints, except as documented, Reports as per HPI and Reports Normal hearing present Psychiatric: Psychiatric: Reports no additional psychiatric complaints and Reports as per HPI Endocrine: Endocrine: Reports no additional endocrine complaints Hematologic/Lymphatic: Hematologic/Lymphatic: Reports no additional hematologic/lymphatic complaints Allergic/Immunologic: Allergic/Immunologic: Reports no additional allergic/immunologic complaints Exam Const: General: cooperative, healthy appearing, comfortable, no acute distress, well developed, awake, Physically active, average body habitus and well nourished Nutritional Appearance: average body habitus and well nourished Orientation/consciousness: oriented to person, oriented to place, oriented to time and patient oriented x3 Limitations: no limitations HENMT: Head: normal to inspection, No palpable skull fracture present, normocephalic, atraumatic and abrasion Ears: hearing grossly normal bilaterally and external ears normal Face/Nose/Sinus: Normal external nose present and Normal nares present Eyes: General: appearance normal, both eyes and all related structures Alignment and Position: alignment normal Periorbital: periorbital findings normal Eyelids: eyelids normal Sclera: sclerae normal Pupils: Equal, round and reactive pupils present EOM: EOMs intact bilaterally Neck: Neck: normal vi
[2022-08-26] MEDS: SODIUM CHLORIDE 0.9% IV 1,000 ML 150 ML IV CONT ×2 (12:10→21:20)
[2022-08-26 14:00] VITALS: BP 137/61; PULSE 58; RESP 18; TEMP 36.4; O2SAT 97
[2022-08-26 20:00] VITALS: PULSE 60; RESP 18; O2SAT 98
[2022-08-26 21:31] VITALS: BP 137/91; PULSE 59; RESP 18; TEMP 36.4; O2SAT 98
[2022-08-27] MEDS: SODIUM CHLORIDE 0.9% IV 1,000 ML 150 ML IV CONT ×3 (03:48→18:04)
[2022-08-27] MEDS: HYDROcodone/acetaminophen (*CRX) 10-325 MG TABLET 1 TAB PO ×4 (03:57→21:44)
[2022-08-27 05:48] VITALS: BP 164/75; PULSE 58; RESP 18; TEMP 36.1; O2SAT 99
[2022-08-27 06:43] LABS: Anion Gap 5 mmol/L (8-16); Blood Urea Nitrogen 50 mg/dL (7-17); Calcium 8.1 mg/dL (8.4-10.2); Carbon Dioxide 24 mmol/L (22-30); Chloride 111 mmol/L (98-107); Estimated CRCL calculation 11 ml/min; Estimated Glomerular Filt Rate 10; Glucose 80 mg/dL (65-110); Potassium 3.8 mmol/L (3.4-5.0); Sodium 140 mmol/L (137-145)
[2022-08-27] MEDS: ALPRAZolam (*CRX) 0.25 MG TABLET PO ×3 (08:59→20:43)
[2022-08-27] MEDS: CYCLOBENZAPRINE HCL 10 MG TABLET BY MOUTH ×3 (08:59→17:29)
[2022-08-27] MEDS: PARoxetine 20 MG TABLET BY MOUTH (08:59)
[2022-08-27] MEDS: OMEGA 3 POLYUNSAT FATTY ACIDS 1 GM CAP 2 GM PO ×2 (08:59→17:32)
[2022-08-27] MEDS: PREGABALIN (*CRX) 50 MG CAPSULE 100 MG PO ×3 (09:00→17:29)
[2022-08-27] MEDS: ROSUVASTATIN 10 MG TABLET 40 MG PO (09:00)
--- NOTE | 2022-08-27 10:36 | P.PNIM_ITS ---
Progress Note: A&P Assessment and Plan (1) Acute kidney failure: Qualifiers: Acute renal failure type: unspecified Qualified Code(s): N17.9 - Acute kidney failure, unspecified Code(s): N17.9 - Acute kidney failure, unspecified Status: Acute Assessment and Plan: Improving. Continue IV fluids. most likely this is prerenal azotemia secondary to dehydration. consulted Nephrology. Renal ultrasound unremarkable. Monitor BMP (2) Acute UTI: Code(s): N39.0 - Urinary tract infection, site not specified Status: Acute Assessment and Plan: Continue IV Rocephin. urine and blood cultures are pending. (3) Anxiety disorder: Code(s): F41.9 - Anxiety disorder, unspecified Status: Acute Assessment and Plan: Continue with alprazolam (4) Mixed hyperlipidemia: Code(s): E78.2 - Mixed hyperlipidemia Status: Acute Assessment and Plan: Continue with rosuvastatin monitor liver enzymes (5) Chronic insomnia: Code(s): F51.04 - Psychophysiologic insomnia Status: Acute Assessment and Plan: The patient takes Ambien at home. (6) Lumbar degenerative disc disease: Code(s): M51.36 - Other intervertebral disc degeneration, lumbar region Status: Acute Assessment and Plan: Continue with patient's home medication of paroxetine for the chronic pain and Vicodin as well. She also takes cyclobenzaprine for her chronic lower back pain. Subjective Date/time seen: 08/27/22 10:36 Interval history: No acute events overnight Review of Systems Review of Systems: All systems reviewed & are unremarkable except as noted in HPI and below Constitutional: Constitutional: Reports as per HPI and Reports no additional constitutional complaints Eyes: Eyes: Reports as per HPI and Reports no additional eye complaints ENT: Reports system reviewed and no additional complaints, except as documented and Reports Normal hearing present Cardiovascular: Cardiovascular: Reports no additional cardiovascular complaints Respiratory: Respiratory: Reports no additional respiratory complaints and Reports no additional respiratory complaints Gastrointestinal: Gastrointestinal: Reports as per HPI and Reports no additional gastrointestinal complaints Musculoskeletal: Musculoskeletal: Reports no additional musculoskeletal complaints Integumentary/Breasts: Skin/Breast: Reports system reviewed and no additional complaints, except as docu and Reports as per HPI Neurologic: Reports system reviewed and no additional complaints, except as documented, Reports as per HPI and Reports Normal hearing present Psychiatric: Psychiatric: Reports no additional psychiatric complaints and Reports as per HPI Endocrine: Endocrine: Reports no additional endocrine complaints Hematologic/Lymphatic: Hematologic/Lymphatic: Reports no additional hematologic/lymphatic complaints Allergic/Immunologic: Allergic/Immunologic: Reports no additional allergic/immunologic complaints Exam Const: General: cooperative, healthy appearing, comfortable, no acute distress, well developed, awake, Physically active, average body habitus and well nourished Nutritional Appearance: average body habitus and well nourished Orientation/consciousness: oriented to person, oriented to place, oriented to time and patient oriented x3 Limitations: no limitations HENMT: Head: normal to inspection, No palpable skull fr
[2022-08-27 14:00] VITALS: BP 148/96; PULSE 62; RESP 16; TEMP 36.6; O2SAT 98
[2022-08-27 20:00] VITALS: PULSE 61; RESP 18; O2SAT 100
[2022-08-27] MEDS: ZOLPIDEM TARTRATE (*CRX) 5 MG TABLET 10 MG PO (20:43)
[2022-08-27 21:49] VITALS: BP 185/86; PULSE 61; RESP 18; TEMP 36.6; O2SAT 100
[2022-08-28] MEDS: SODIUM CHLORIDE 0.9% IV 1,000 ML 150 ML IV CONT ×2 (03:58→10:50)
[2022-08-28 06:00] VITALS: BP 186/83; PULSE 64; RESP 20; TEMP 36.4; O2SAT 100
[2022-08-28] MEDS: hydrALAZINE HCL 20 MG/ML VIAL 10 MG IV PUSH (06:18)
[2022-08-28] MEDS: HYDROcodone/acetaminophen (*CRX) 10-325 MG TABLET 1 TAB PO ×3 (08:00→19:31)
[2022-08-28] MEDS: PARoxetine 20 MG TABLET BY MOUTH (08:01)
[2022-08-28] MEDS: PREGABALIN (*CRX) 50 MG CAPSULE 100 MG PO ×3 (08:01→21:51)
[2022-08-28] MEDS: OMEGA 3 POLYUNSAT FATTY ACIDS 1 GM CAP 2 GM PO ×2 (08:01→17:47)
[2022-08-28] MEDS: CYCLOBENZAPRINE HCL 10 MG TABLET BY MOUTH ×3 (08:01→21:51)
[2022-08-28] MEDS: ROSUVASTATIN 10 MG TABLET 40 MG PO (08:01)
[2022-08-28] MEDS: ALPRAZolam (*CRX) 0.25 MG TABLET PO ×2 (08:01→14:23)
--- NOTE | 2022-08-28 13:41 | PM.IMPN ---
Progress Note: A&P Assessment and Plan (1) Acute kidney failure: Qualifiers: Acute renal failure type: unspecified Qualified Code(s): N17.9 - Acute kidney failure, unspecified Code(s): N17.9 - Acute kidney failure, unspecified Status: Acute Assessment and Plan: Improvin/12 creatinine 7.2, 08/27 4.5, 08/28 pending still Renal ultrasound unremarkable. Continue IV fluids.L Likely prerenal azotemia secondary to dehydration. (2) Acute UTI: Code(s): N39.0 - Urinary tract infection, site not specified Status: Acute Assessment and Plan: Pansensitive e coli Continue ceftriaxone (3) Anxiety disorder: Code(s): F41.9 - Anxiety disorder, unspecified Status: Acute Assessment and Plan: Continue with alprazolam and paroxetine (4) Mixed hyperlipidemia: Code(s): E78.2 - Mixed hyperlipidemia Status: Acute Assessment and Plan: Continue rosuvastatin (5) Chronic insomnia: Code(s): F51.04 - Psychophysiologic insomnia Status: Acute Assessment and Plan: Continue prn Ambien per home regimen (6) Lumbar degenerative disc disease: Code(s): M51.36 - Other intervertebral disc degeneration, lumbar region Status: Acute Assessment and Plan: Continue [place] q 6h, Flexeril q 8h, Lyrica q 8h (7) Polypharmacy: Code(s): Z79.899 - Other [facility]current[facility] drug therapy Status: Acute Assessment and Plan: Likely a contributing to her current predicament To be addressed by her PCP Subjective Date/time seen: 08/28/22 13:41 Interval history: Notes chronic low back pain. Would like her medication rearranged to her home schedule. Denied chest pain or shortness of breath. Denied edema. Denied nausea vomiting. Denied abdominal pain. Still has some diarrhea but improving. No dysuria. No abnormal bleeding. No focal weakness or numbness. Review of Systems Review of Systems: All systems reviewed & are unremarkable except as noted in HPI and below Exam Narrative: HEENT: PERRL, sclerae nonicteric, pharyngeal mucosa pink and intact NECK: No JVD CHEST: Clear to auscultation. Normal effort. HEART: NL S1/S2, regular, no murmur ABDOMEN: BS+, soft, nontender, no mass, no bruits EXTREMITIES: No cyanosis, edema, or clubbing NEUROLOGIC: CN intact and symmetric to inspection. MUSCULOSKELETAL: Tone and strength symmetric. PSYCH: Alert. Oriented to person, place, and time. Objective Data Vital Signs Vital Signs: Vital Signs - 24 hr 08/27/22 14:00 08/27/22 21:49 08/27/22 20:00 Temperature 97.8 F 97.8 F Pulse Rate 62 61 61 Respiratory Rate 16 18 18 Blood Pressure 148/96 H 185/86 H Pulse Oximetry 98 100 100 Oxygen Delivery Room Air 08/28/22 06:00 08/28/22 08:00 Temperature 97.6 F Pulse Rate 64 Respiratory Rate 20 Blood Pressure 186/83 H Pulse Oximetry 100 Oxygen Delivery Room Air Intake/Output Intake/Output: Intake & Output 08/25/22 08/26/22 08/27/22 08/28/22 23:59 23:59 23:59 23:59 Intake Total 1050 3340 4990 3600 Output Total 1200 3500 3800 Balance 1050 2140 1490 -200 Meds/Results Medications: Active Medications Generic Name Dose Route Start Last Admin Trade Name Freq PRN Reason Stop Dose Admin Hydrocodone Bitart/Acetaminophen 1 tab 08/26/22 00:00 08/28/22 08:00 Hydrocodone/Acetaminophen (*Crx) 10-325 Mg Tablet PO 1 tab Q6H PRN Administration pain Alprazolam 0.25 mg 08/26/22 00:00 08/28/22 08:01 Alprazolam (*Crx) 0.25 Mg Tablet PO 0.25 mg TID PRN Administration anxiety Cyclobenzaprine HCl 10 mg 08/26/22 09:00 08/28/22 08:01 Cyclobenzaprine Hcl 10 Mg Tablet BY MOUTH 10 mg TID LEIGHA Administration Fish Oil 2 gm 08/26/22 09:00 08/28/22 08:01 Newcomb 3 Polyunsat Fatty Acids 1 Gm Cap PO 2 gm BID LEIGHA Administration Sodium Chloride 1,000 mls @ 150 mls/hr 08/25/22 17:40 08/28/22 10:50 Normal Saline Iv I
[2022-08-28 14:00] VITALS: BP 164/82; PULSE 62; RESP 18; TEMP 36.8; O2SAT 100
[2022-08-28 15:17] LABS: Albumin Level 3.9 g/dL (3.5-5.1); Anion Gap 11 mmol/L (8-16); Blood Urea Nitrogen 38 mg/dL (7-17); Calcium 8.6 mg/dL (8.4-10.2); Carbon Dioxide 22 mmol/L (22-30); Chloride 110 mmol/L (98-107); Estimated CRCL calculation 16 ml/min; Estimated Glomerular Filt Rate 15; Glucose 77 mg/dL (65-110); Phosphorus 4.9 mg/dL (2.5-4.5); Potassium 3.5 mmol/L (3.4-5.0); Sodium 143 mmol/L (137-145)
[2022-08-28 22:00] VITALS: BP 169/84; PULSE 63; RESP 20; TEMP 36.4; O2SAT 98
[2022-08-29] MEDS: ALPRAZolam (*CRX) 0.25 MG TABLET PO ×4 (00:46→17:58)
[2022-08-29] MEDS: HYDROcodone/acetaminophen (*CRX) 10-325 MG TABLET 1 TAB PO ×4 (00:47→17:58)
[2022-08-29] MEDS: SODIUM CHLORIDE 0.9% IV 1,000 ML 150 ML IV CONT ×3 (00:49→17:57)
[2022-08-29] MEDS: ZOLPIDEM TARTRATE (*CRX) 5 MG TABLET 10 MG PO ×2 (00:51→21:09)
[2022-08-29] MEDS: PREGABALIN (*CRX) 50 MG CAPSULE 100 MG PO ×3 (05:39→21:09)
[2022-08-29] MEDS: CYCLOBENZAPRINE HCL 10 MG TABLET BY MOUTH ×3 (05:39→21:09)
[2022-08-29 06:00] VITALS: BP 178/85; PULSE 73; RESP 18; TEMP 36.4; O2SAT 99
[2022-08-29 07:47] LABS: Hematocrit 35.9 % (37.0-47.0); Hemoglobin 11.6 g/dL (12.0-15.0); Mean Corpuscular HGB Conc 32.3 g/dl (32-36); Mean Corpuscular Hemoglobin 30.3 pg (26-34); Mean Corpuscular Volume 93.7 fl (80-100); Mean Platelet Volume 10.9 fl (7.4-10.4); Platelet Count Result 171 k/mm3 (150-375); Red Blood Count 3.83 M/mm3 (4.2-5.4); Red Cell Distribution Width 14.2 % (11.5-14.5); White Blood Count 7.3 K/mm3 (4.5-10.0)
[2022-08-29 08:18] LABS: Albumin Level 3.9 g/dL (3.5-5.1); Anion Gap 6 mmol/L (8-16); Blood Urea Nitrogen 27 mg/dL (7-17); Calcium 8.6 mg/dL (8.4-10.2); Carbon Dioxide 29 mmol/L (22-30); Chloride 110 mmol/L (98-107); Estimated CRCL calculation 19 ml/min; Estimated Glomerular Filt Rate 18; Glucose 78 mg/dL (65-110); Phosphorus 4.5 mg/dL (2.5-4.5); Potassium 3.6 mmol/L (3.4-5.0); Sodium 145 mmol/L (137-145)
[2022-08-29] MEDS: OMEGA 3 POLYUNSAT FATTY ACIDS 1 GM CAP 2 GM PO ×2 (09:35→17:58)
[2022-08-29] MEDS: PARoxetine 20 MG TABLET BY MOUTH (09:36)
[2022-08-29] MEDS: ROSUVASTATIN 10 MG TABLET 40 MG PO (09:36)
[2022-08-29] MEDS: amLODIPine BESYLATE 5 MG TABLET PO (09:36)
[2022-08-29 14:00] VITALS: BP 168/81; PULSE 67; RESP 16; TEMP 36.6; O2SAT 99
--- NOTE | 2022-08-29 14:39 | PM.IMPN ---
Progress Note: A&P Assessment and Plan (1) Acute kidney failure: Qualifiers: Acute renal failure type: unspecified Qualified Code(s): N17.9 - Acute kidney failure, unspecified Code(s): N17.9 - Acute kidney failure, unspecified Status: Acute Assessment and Plan: Likely prerenal azotemia secondary to dehydration. Improvin/12 creatinine 7.2, 08/27 4.5, 08/28 3.1, 08/29 2.7 Renal ultrasound unremarkable. Continue IV fluids. (2) Acute UTI: Code(s): N39.0 - Urinary tract infection, site not specified Status: Acute Assessment and Plan: Pansensitive e coli Continue ceftriaxone (started 08/25) for 7 days (3) Diarrhea: Code(s): R19.7 - Diarrhea, unspecified Status: Acute Assessment and Plan: Suspect gastroenteritis likely viral May have contributed to her urinary tract infection and certainly to her dehydration Symptoms improving (4) Anxiety disorder: Code(s): F41.9 - Anxiety disorder, unspecified Status: Acute Assessment and Plan: Continue with alprazolam and paroxetine (5) Mixed hyperlipidemia: Code(s): E78.2 - Mixed hyperlipidemia Status: Acute Assessment and Plan: Continue rosuvastatin (6) Chronic insomnia: Code(s): F51.04 - Psychophysiologic insomnia Status: Acute Assessment and Plan: Continue prn Ambien per home regimen (7) Lumbar degenerative disc disease: Code(s): M51.36 - Other intervertebral disc degeneration, lumbar region Status: Acute Assessment and Plan: Continue [place] q 6h, Flexeril q 8h, Lyrica q 8h (8) Polypharmacy: Code(s): Z79.899 - 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 Diarrhea now only after some meals. Sleeping better. Denied chest pain or shortness of breath or abdominal pain. Denied abnormal bleeding. Denied urinary complaints other than frequency. Puffiness in hands and feet. Ring is a little tight. No focal weakness or numbness. Review of Systems Review of Systems: All systems reviewed & are unremarkable except as noted in HPI and below Exam Narrative: HEENT: PERRL, sclerae nonicteric, pharyngeal mucosa pink and intact NECK: No JVD CHEST: Clear to auscultation. Normal effort. HEART: NL S1/S2, regular, no murmur ABDOMEN: BS+, soft, nontender, no mass, no bruits EXTREMITIES: No pitting edema NEUROLOGIC: CN intact and symmetric to inspection. MUSCULOSKELETAL: Tone and strength symmetric. PSYCH: Alert. Oriented to person, place, and time. Objective Data Vital Signs Vital Signs: Vital Signs - 24 hr 08/28/22 19:43 08/28/22 22:00 08/29/22 06:00 Temperature 97.6 F 97.6 F Pulse Rate 63 73 Respiratory Rate 20 18 Blood Pressure 169/84 H 178/85 H Pulse Oximetry 98 99 Oxygen Delivery Room Air 08/29/22 08:20 Temperature Pulse Rate Respiratory Rate Blood Pressure Pulse Oximetry Oxygen Delivery Room Air Intake/Output Intake/Output: Intake & Output 08/26/22 08/27/22 08/28/22 08/29/22 23:59 23:59 23:59 23:59 Intake Total 3340 4990 4770 2180 Output Total 1200 3500 4825 1500 Balance 2140 1490 -55 680 Meds/Results Medications: Active Medications Generic Name Dose Route Start Last Admin Trade Name Freq PRN Reason Stop Dose Admin Hydrocodone Bitart/Acetaminophen 1 tab 08/28/22 14:00 08/29/22 12:31 Hydrocodone/Acetaminophen (*Crx) 10-325 Mg Tablet PO 1 tab Q6HR LEIGHA Administration Alprazolam 0.25 mg 08/26/22 00:00 08/29/22 12:31 Alprazolam (*Crx) 0.25 Mg Tablet PO 0.25 mg TID PRN Administration anxiety Amlodipine Besylate 5 mg 08/29/22 09:00 08/29/22 09:36 Amlodipine Besylate 5 Mg Tablet PO
[2022-08-29 21:10] VITALS: BP 179/77; PULSE 67; RESP 16; TEMP 37.2; O2SAT 100
[2022-08-30] MEDS: HYDROcodone/acetaminophen (*CRX) 10-325 MG TABLET 1 TAB PO ×3 (00:40→12:24)
[2022-08-30] MEDS: SODIUM CHLORIDE 0.9% IV 1,000 ML 150 ML IV CONT ×2 (00:42→08:29)
[2022-08-30] MEDS: ALPRAZolam (*CRX) 0.25 MG TABLET PO ×2 (04:08→12:24)
[2022-08-30] MEDS: CYCLOBENZAPRINE HCL 10 MG TABLET BY MOUTH ×2 (05:18→14:35)
[2022-08-30] MEDS: PREGABALIN (*CRX) 50 MG CAPSULE 100 MG PO ×2 (05:18→14:36)
[2022-08-30 05:20] VITALS: BP 149/72; PULSE 66; RESP 18; TEMP 36.6; O2SAT 94
[2022-08-30] MEDS: ONDANSETRON INJ 4 MG/2 ML VIAL IV PUSH (05:59)
[2022-08-30 06:49] LABS: Hematocrit 33.5 % (37.0-47.0); Mean Corpuscular HGB Conc 32.8 g/dl (32-36); Mean Corpuscular Hemoglobin 30.6 pg (26-34); Mean Corpuscular Volume 93.3 fl (80-100); Mean Platelet Volume 10.9 fl (7.4-10.4); Platelet Count Result 173 k/mm3 (150-375); Red Blood Count 3.59 M/mm3 (4.2-5.4); White Blood Count 6.4 K/mm3 (4.5-10.0)
[2022-08-30 07:00] LABS: Albumin Level 3.5 g/dL (3.5-5.1); Anion Gap 9 mmol/L (8-16); Blood Urea Nitrogen 20 mg/dL (7-17); Calcium 8.2 mg/dL (8.4-10.2); Carbon Dioxide 28 mmol/L (22-30); Chloride 108 mmol/L (98-107); Estimated CRCL calculation 25 ml/min; Estimated Glomerular Filt Rate 25; Glucose 84 mg/dL (65-110); Phosphorus 3.9 mg/dL (2.5-4.5); Potassium 2.9 mmol/L (3.4-5.0); Sodium 145 mmol/L (137-145)
[2022-08-30] MEDS: ROSUVASTATIN 10 MG TABLET 40 MG PO (08:30)
[2022-08-30] MEDS: amLODIPine BESYLATE 5 MG TABLET PO (08:30)
[2022-08-30] MEDS: PARoxetine 20 MG TABLET BY MOUTH (08:30)
[2022-08-30] MEDS: OMEGA 3 POLYUNSAT FATTY ACIDS 1 GM CAP 2 GM PO (08:30)
[2022-08-30] MEDS: POTASSIUM CHLORIDE 20 MEQ ER TABLET 80 MEQ PO (09:50)
--- NOTE | 2022-08-30 11:05 | PM.DS ---
DS: Admitting Diagnosis Discharge Date 08/30/2022 Admitting Diagnosis Acute kidney injury DS: Discharge Diagnosis Discharge Diagnosis (1) Acute kidney failure: Qualifiers: Acute renal failure type: unspecified Qualified Code(s): N17.9 - Acute kidney failure, unspecified Code(s): N17.9 - Acute kidney failure, unspecified Status: Acute (2) HTN (hypertension): Code(s): I10 - Essential (primary) hypertension Status: Acute DS: Summary Hospital Course Hospital Course: This is a 66-year-old female patient who has been complaining of nausea vomiting and diarrhea for at least 4 days.?? Her BUN is 72 creatinine 7.2.? GFR 7.? The patient was started on IV fluids, Zofran, Reglan, Benadryl, and Rocephin.? Abdominal pelvis CT was read as the following. Small sliding hiatal hernia. 2. Gallbladder distention, which may be secondary to fasting. Correlate with physical exam to exclude acute cholecystitis. Abdominal ultrasound was read as a following1. Mildly dilated common duct. No specific evidence of acute cholecystitis. Patient's creatinine has continued to improve. it is down to 2.0 today. She was also found to be hypertensive and was started on amlodipine. Patient is otherwise asymptomatic and is being discharged home. She will follow-up with PCP as outpatient with a BMP Time Spent with Patient Time attestation: Total time spent providing and/or coordinating discharge services: DS: Data Data Completed and Pending Labs on day of discharge: Labs from last 24 hours 08/30/22 06:29 WBC 6.4 RBC 3.59 L Hgb 11.0 L Hct 33.5 L MCV 93.3 MCH 30.6 MCHC 32.8 RDW 14.0 Plt Count 173 MPV 10.9 H Sodium 145 Potassium 2.9 L Chloride 108 H Carbon Dioxide 28 Anion Gap 9 BUN 20 H Creatinine 2.00 H Estim Creat Clear Calc 25 Estimated GFR 25 L Glucose 84 Calcium 8.2 L Phosphorus 3.9 Albumin 3.5 Preliminary micro results at discharge 08/26/22 00:38 Blood Culture - Preliminary Blood 08/26/22 00:38 Blood Culture - Preliminary Blood Discharge Plan Discharge Consulting providers: Valarie Clark Discharging Clinician: Eligio Barahona Anticipated Discharge Date/Time: 08/30/22 11:03 Patient Disposition: Home, Self-Care Activity: no preference Diet: heart healthy Patient Instructions: Antibiotic Form, How to Stop Smoking (DC), Pain Management in Older Adults (GEN) Stand Alone Forms: General Discharge Information Follow-up/Referrals: Adolph Pelayo MD [Primary Care Provider] - Discharge Medications: New amlodipine 10 mg tablet 10 mg PO DAILY Qty: 30 0RF Continued cholecalciferol (vitamin D3) 50 mcg (2,000 unit) tablet 50 mcg PO DAILY rosuvastatin 40 mg tablet 40 mg PO DAILY Qty: 90 1RF cyclobenzaprine 10 mg tablet See Rx Instructions .ROUTE .COMPLEX Qty: 270 1RF Dose Instruction: TAKE 1 TABLET BY MOUTH 3 TIMES DAILY Rx Instructions: TAKE 1 TABLET BY MOUTH 3 TIMES DAILY paroxetine HCl 40 mg tablet See Rx Instructions .ROUTE .COMPLEX Qty: 90 1RF Dose Instruction: TAKE 1 TABLET BY MOUTH DAILY Rx Instructions: TAKE 1 TABLET BY MOUTH DAILY icosapent ethyl [Vascepa] 1 gram capsule 2 g PO BID Qty: 360 1RF pregabalin [Lyrica] 100 mg capsule 100 mg PO TID Qty: 90 0RF zolpidem 10 mg tablet 10 mg PO QHS PRN (Reason: insomnia) Qty: 30 0RF alprazolam [Xanax] 0.25 mg tablet 0.25 mg PO TID PRN (Reason: anxiety) Qty: 90 0RF Rx Instructions: fill after 04/07/22 hydrocodone-acetaminophen 10-325 mg tablet 1 tablet PO Q6H PRN (Reason: pain) Qty: 120 0RF Discontinued meloxicam 15 mg tablet See Rx Instructions .ROUTE .COMPLEX Qty: 90 1RF Dose Instruction: TAKE 1 TABLET BY MOUTH DAILY Rx Instructions: TAKE 1 TABLET BY MOUTH DAILY Date of admission: 08/27/22 09:28 Primary Care Provider: Adolph Pelayo Admitting Provider: Mikayla
== END 2022-08-30 15:30 | disposition home or self-care (01) | DRG 683 ==
LOC: ANHED 18:27 → ANH3MEDSUR 19:09
PROVIDERS: Internal Medicine; Nurse Practitioner; Admitting Provider Family Medicine; Emergency Provider Physician Assistant; PCP Family Medicine; Visit Provider Hospitalist
DX: N17.9 Acute kidney failure, unspecified (principal); N39.0 Urinary tract infection, site not specified; B96.20 Unspecified Escherichia coli [E. coli] as the cause of diseases classified elsewhere; A08.4 Viral intestinal infection, unspecified; E86.0 Dehydration; I10 Essential (primary) hypertension; F31.9 Bipolar disorder, unspecified; F41.9 Anxiety disorder, unspecified; J44.9 Chronic obstructive pulmonary disease, unspecified; E78.2 Mixed hyperlipidemia; M51.36 Other intervertebral disc degeneration, lumbar region; F17.210 Nicotine dependence, cigarettes, uncomplicated; F51.04 Psychophysiologic insomnia; Z85.89 Personal history of malignant neoplasm of other organs and systems
CPT/HCPCS: 36415; 74176; 76705; 76775; 80048; 80053; 80069; 81001; 82550; 82570; 83605; 83690; 83735; 84300; 84443; 85025; 85027; 87040; 87045; 87077; 87086; 87186; 87269; 87272; 87427; 89055; 96361; 96365; 96366; 96375; 96376; 99285; A9270; G0378; J0360; J0696; J1200; J2405; J2765; J7030

== ENCOUNTER 2023-02-06 09:18 | Outpatient (CLI) | payer MEDICARE, SELFPAY ==
--- NOTE | ~2023-02-06 | MR_ITS ---
EXAMINATION: MR lumbar spine wo con DATE: 02/06/2023 10:10 INDICATION: Other chronic pain. Lumbar pain. Right leg pain. TECHNIQUE: Magnetic resonance imaging (MRI) of the lumbar spine was performed without intravenous con trast. COMPARISON: Lumbar spine MRI 12/02/2018 FINDINGS: There is 15 degrees dextroscoliosis of thoracolumbar spine. There is 3 mm retrolisthesis of L1 on L2 and 10 mm anterolisthesis of L4 on L5. There is focal kyphosis at L4-L5. There are changes of posterior fusion procedure from L2 to L5 with pedicle screws. There is moderately decreased disc h eight at T12-L1, severely decreased disc height at L1-L2, and mildly decreased disc height at L4-L5. The distal spinal cord signal intensity is normal. The conus medullaris is at L1. The following disc levels are specifically discussed: T12-L1: The disc is bulging and has an annular fissure. There is moderate right and severe left facet joint osteoarthritis. There is mild left neural foraminal stenosis. There is mild central canal sten osis. L1-L2: The disc is bulging and has an annular fissure. There is severe bilateral facet joint osteoart hritis. There is moderate bilateral neural foraminal stenosis. There is mild central canal stenosis. L2-L3: The disc does not extend beyond the endplate margin. There is mild bilateral facet joint hyper trophy. There is mild bilateral neural foraminal stenosis. There is no central canal stenosis. There is posterior decompression. L3-L4: The disc does not extend beyond the endplate margin. There is no facet joint hypertrophy. Ther e is no neural foraminal stenosis. There is no central canal stenosis. L4-L5: The disc does not extend beyond the endplate margin. There is no facet joint hypertrophy. Ther e is no neural foraminal stenosis. There is no central canal stenosis. There is posterior decompressi on. L5-S1: The disc is bulging and has an annular fissure. There is severe bilateral facet joint osteoart hritis. There is mild bilateral neural foraminal stenosis. There is mild central canal stenosis. IMPRESSION: 1. Severe lumbar spondylosis with interval worsening at T12-L1 and L1-L2. 2. Posterior fusion procedure from L2 to L5. Reviewed, dictated and finalized at location E. 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
== END 2023-02-06 09:19 | disposition home or self-care (01) ==
PROVIDERS: PCP Family Medicine; Visit Provider Family Medicine
DX: E11.9 Type 2 diabetes mellitus without complications (principal); E55.9 Vitamin D deficiency, unspecified; F41.9 Anxiety disorder, unspecified; F51.04 Psychophysiologic insomnia; G47.00 Insomnia, unspecified; I10 Essential (primary) hypertension; G89.29 Other chronic pain; M47.896 Other spondylosis, lumbar region; Z98.1 Arthrodesis status
CPT/HCPCS: 72148

== ENCOUNTER 2023-03-18 10:20 | Outpatient (CLI) | payer MEDICARE, SELFPAY ==
--- NOTE | ~2023-03-18 | XR_ITS ---
Supine and upright views of the abdomen Clinical history: Constipation Findings: Bowel gas pattern is nonspecific. Moderate stool burden. No evidence for obstruction or ray e air. No abnormal mass lesion or calcification is seen. Lumbar spinal fixation hardware present. Impression: Moderate stool burden. Lumbar spinal fixation hardware. Reviewed, dictated and finalized at [facility]. 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 Lumbar spinal fixation hardware.
--- NOTE | ~2023-03-18 | XR_ITS ---
XR lumbar spine min 4V DATE: 03/18/2023 10:53 INDICATION: Arthrodesis status TECHNIQUE: Standing AP and standing neutral, flexion and extension lateral views COMPARISON: 12/02/2018 lumbar spine FINDINGS: Status post posterior surgical fusion by means of posterior column bone grafts and pedicle screws and rods at L2-L5. There is approximately 11-12 mm grade 2 anterolisthesis at L4-5 which appears stable in flexion, exte nsion and neutral. No hardware fracture or displacement is evident. There is diffuse osteopenia. No fracture or bone destruction of the lumbar spine is evident. Moderately prominent loss of interspace height at L4-5; remaining lumbar levels interspaces are mildl y narrowed at worst. The sacroiliac joints are intact. IMPRESSION: Status post posterior surgical fusion at L2-L5 Relatively stable grade 2 anterolisthesis at L4-5 since 12/02/2018 Reviewed, dictated and finalized at location B. EO COMPILER
== END 2023-03-18 10:21 | disposition home or self-care (01) ==
PROVIDERS: PCP Family Medicine; Visit Provider Family Medicine
DX: M47.816 Spondylosis without myelopathy or radiculopathy, lumbar region (principal); Z98.1 Arthrodesis status; K59.00 Constipation, unspecified
CPT/HCPCS: 72110; 74018

== ENCOUNTER 2024-05-24 00:37 | Day surgery (SDC) | payer MEDICARE, SELFPAY ==
[2024-05-15 14:53] VITALS: BMI 34.7
[2024-05-24 12:02] VITALS: BP 139/83; PULSE 82; RESP 18; TEMP 36.2; O2SAT 100; BMI 34.4
[2024-05-24] MEDS: LACTATED RINGERS 1,000 ML 150 ML IV CONT (12:05)
--- NOTE | 2024-05-24 12:37 | P.PNAN_ITS ---
Anes - Initial Pre Proc Eval Procedure: Operation Date: 05/24/24 13:00 Proposed Procedures p Screening Colonoscopy - Manuel Royal MD Date/Time: 05/24/24 12:37 Surgeon: Manuel Royal MD Pre Op Diagnosis: Screening Patient Data Age: 68 Gender: F Height: 1.55 m Weight: 82.7 kg Last Vital Signs Temp 97.1 F L 05/24/24 12:02 Pulse 82 05/24/24 12:02 Resp 18 05/24/24 12:02 BP 139/83 05/24/24 12:02 Pulse Ox 100 05/24/24 12:02 O2 Del Method Room Air 05/24/24 12:02 Allergies Allergy/AdvReac Type Severity Reaction Status Date / Time morphine Allergy Intermediate Unable to Verified 05/24/24 11:58 sleep Penicillins Allergy Unknown Rash Verified 05/24/24 11:58 Home Medications ?Medication ?Instructions ?Recorded ?Confirmed ?Type cholecalciferol (vitamin D3) 50 50 mcg PO DAILY 06/22/21 05/24/24 History mcg (2,000 unit) tablet turmeric root extract 500 mg 1,000 mg PO BID 09/27/23 05/24/24 History capsule rosuvastatin 40 mg tablet See Rx Instructions .Route 12/22/23 05/15/24 Rx .COMPLEX #100 tabs paroxetine HCl 40 mg tablet See Rx Instructions .Route 01/23/24 05/24/24 Rx .COMPLEX #90 tabs ondansetron 4 mg disintegrating 4 mg PO Q6H PRN nausea and 02/03/24 05/15/24 Rx tablet vomiting #10 tabs cyclobenzaprine 10 mg tablet See Rx Instructions .Route 03/05/24 05/24/24 Rx .COMPLEX #300 tabs Vascepa 1 gram capsule (icosapent See Rx Instructions .Route 04/10/24 05/24/24 Rx ethyl) .COMPLEX #400 caps hydrocodone 5 mg-acetaminophen 325 1 tablet PO Q6H PRN pain #120 tabs 05/03/24 05/24/24 Rx mg tablet buspirone 5 mg tablet See Rx Instructions .Route 05/04/24 05/24/24 Rx .COMPLEX #60 tabs doxepin 10 mg capsule See Rx Instructions .Route 05/04/24 05/24/24 Rx .COMPLEX #30 caps alprazolam 0.25 mg tablet (Xanax) 0.25 mg PO TID PRN anxiety #90 tabs 05/07/24 05/24/24 Rx pregabalin 50 mg capsule 50 mg PO QID #120 caps 05/07/24 05/24/24 Rx sumatriptan succinate 100 mg tablet See Rx Instructions PO .COMPLEX 05/07/24 05/24/24 Rx #28 tabs omega 0-ajd-mrz-fish oil 1,000 mg 1 cap PO BID 05/15/24 05/24/24 History (120 mg-180 mg) capsule (Fish Oil) Patient hx anesthesia problems: none Family hx anesthesia problems: none Results Review: All pre-operative results and documents have been reviewed as part of the pre- operative evaluation. [facility] Past Medical History Medical History (Updated 04/02/24 @ 14:35 by Adolph Pelayo MD) Screening for colon cancer Insomnia Anxiety disorder Lumbar degenerative disc disease Abnormal mammogram of left breast Abnormal mammogram of both breasts Encounter for vitamin deficiency screening Bipolar disorder COPD (chronic obstructive pulmonary disease) History of tobacco abuse History of endometrial cancer Mixed hyperlipidemia Depressive disorder Neuropathy, lower extremity Body mass index (bmi) 31.0-31.9, adult Surgical History Surgical History H/O colonoscopy H/O breast biopsy H/O: hysterectomy History of back surgery Metal saud X2 Family History Family History Unknown No problems noted. Father Alcoholism Heart disease Mother Breast cancer Depression Sibling Breast cancer Grandparent Uterine cancer Social History Social History Social History: The patient stated that she stop smoking yesterday. She is . She has 1 biological son. The patient stated that she does use marijuana gummies. She lives with her and is retired. Durable power defense attorney is her . Code status full code Years smoked: 55 Smoking status: Current every day smoker Tobacco type: cigarettes and e-cigarettes/vaping Smoking end date: 08/25/22 Alcohol intake: current Drinks per week: 7 Substance use: current Substance use type: marijuana Last use: 05/15/24 Do You Feel Safe in your Home?: Yes Lack of Transportation: No Lack of Food: Sometimes True Current Housing: I Have Housing Concerned About Future Housing: No Difficulty Paying Gas/Electric Bills: No Difficulty Paying for Meds: YES Currently Unemployed: No Education: Trade/Vocational Certificate Difficulty w/ Childcare or Family Care: No Living arrangements: with family Gender identity (if verbalized by the patient): Female Spiritual care concerns: No Anes - Eval Final PreProcedure Day of Procedure 05/24/24 12:37 Patient weight: obese Heart: regular rate and rhythm Lungs: clear to auscultation Airway: Mallampati scale class II Neurological: alert and oriented Last oral intake: >/= 8 hours ASA classification: III Emergent: no Anesthetic plan: proceed Anesthesia type and monitoring: general GIVS and standard monitoring Results Review: All pre-operative results and documents have been reviewed as part of the pre- operative evaluation. Informed Consent: The patient's anesthetic plan and its attendant risks and benefits were discussed with the patient/family/POA. Questions were solicited and answers provided to the satisfaction of the patient/family/POA.
--- NOTE | 2024-05-24 13:03 | PM.HPGS ---
History of Present Illness History of Present Illness Consent: Risks, benefits, and alternatives have been discussed and questions answered. Patient agrees to proceed with procedure. Chief complaint: Screening Narrative: Lydia Albert is a 68 year old female with colon polyp in 2019 Review of Systems Review of Systems: All systems reviewed & are unremarkable except as noted in HPI and below PMFSH Past Medical History Medical History (Updated 05/24/24 @ 13:04 by Manuel Royal MD) Colon polyp Screening for colon cancer Insomnia Anxiety disorder Lumbar degenerative disc disease Abnormal mammogram of left breast Abnormal mammogram of both breasts Encounter for vitamin deficiency screening Bipolar disorder COPD (chronic obstructive pulmonary disease) History of tobacco abuse History of endometrial cancer Mixed hyperlipidemia Depressive disorder Neuropathy, lower extremity Body mass index (bmi) 31.0-31.9, adult Surgical History Surgical History H/O colonoscopy H/O breast biopsy H/O: hysterectomy History of back surgery Metal saud X2 Family History Family History Unknown No problems noted. Father Alcoholism Heart disease Mother Breast cancer Depression Sibling Breast cancer Grandparent Uterine cancer Social History Social History Social History: The patient stated that she stop smoking yesterday. She is . She has 1 biological son. The patient stated that she does use marijuana gummies. She lives with her and is retired. Durable power estate attorney is her . Code status full code Years smoked: 55 Smoking status: Current every day smoker Tobacco type: cigarettes and e-cigarettes/vaping Smoking end date: 08/25/22 Alcohol intake: current Drinks per week: 7 Substance use: current Substance use type: marijuana Last use: 05/15/24 Do You Feel Safe in your Home?: Yes Lack of Transportation: No Lack of Food: Sometimes True Current Housing: I Have Housing Concerned About Future Housing: No Difficulty Paying Gas/Electric Bills: No Difficulty Paying for Meds: YES Currently Unemployed: No Education: Trade/Vocational Certificate Difficulty w/ Childcare or Family Care: No Living arrangements: with family Gender identity (if verbalized by the patient): Female Spiritual care concerns: No Meds Home Medications and Allergies Home Medications ?Medication ?Instructions ?Recorded ?Confirmed ?Type cholecalciferol (vitamin D3) 50 50 mcg PO DAILY 06/22/21 05/24/24 History mcg (2,000 unit) tablet turmeric root extract 500 mg 1,000 mg PO BID 09/27/23 05/24/24 History capsule rosuvastatin 40 mg tablet See Rx Instructions .Route 12/22/23 05/15/24 Rx .COMPLEX #100 tabs paroxetine HCl 40 mg tablet See Rx Instructions .Route 01/23/24 05/24/24 Rx .COMPLEX #90 tabs ondansetron 4 mg disintegrating 4 mg PO Q6H PRN nausea and 02/03/24 05/15/24 Rx tablet vomiting #10 tabs cyclobenzaprine 10 mg tablet See Rx Instructions .Route 03/05/24 05/24/24 Rx .COMPLEX #300 tabs Vascepa 1 gram capsule (icosapent See Rx Instructions .Route 04/10/24 05/24/24 Rx ethyl) .COMPLEX #400 caps hydrocodone 5 mg-acetaminophen 325 1 tablet PO Q6H PRN pain #120 tabs 05/03/24 05/24/24 Rx mg tablet buspirone 5 mg tablet See Rx Instructions .Route 05/04/24 05/24/24 Rx .COMPLEX #60 tabs doxepin 10 mg capsule See Rx Instructions .Route 05/04/24 05/24/24 Rx .COMPLEX #30 caps alprazolam 0.25 mg tablet (Xanax) 0.25 mg PO TID PRN anxiety #90 tabs 05/07/24 05/24/24 Rx pregabalin 50 mg capsule 50 mg PO QID #120 caps 05/07/24 05/24/24 Rx sumatriptan succinate 100 mg tablet See Rx Instructions PO .COMPLEX 05/07/24 05/24/24 Rx #28 tabs omega 5-atl-aav-fish oil 1,000 mg 1 cap PO BID 05/15/24 05/24/24 History (120 mg-180 mg) capsule (Fish Oil) Allergies Allergy/AdvReac Type Severity Reaction Status Date / Time morphine Allergy Intermediate Unable to Verified 05/24/24 11:58 sleep Penicillins Allergy Unknown Rash Verified 05/24/24 11:58 Vital Signs Vital Signs - 24 hr 05/24/24 12:02 Temperature 97.1 F L Pulse Rate 82 Respiratory Rate 18 Blood Pressure 139/83 Pulse Oximetry 100 Oxygen Delivery Room Air Exam Const: General: comfortable and no acute distress HENMT: Face/Nose/Sinus: Normal nares present Eyes: General: appearance normal, both eyes and all related structures Neck: Neck: no JVD Resp: Auscultation: clear to auscultation bilaterally Cardio: Rate: regular rate Rhythm: regular rhythm GI: Inspection: non-distended GI Palp: Yes Soft to palpation Skin: General skin exam: normal color Neuro: Speech: normal speech Extrem: General: normal to inspection Psych: Mental Status: mental status grossly normal Assessment and Plan Assessment and plan (1) Colon polyp: Code(s): K63.5 - Polyp of colon Status: Acute Assessment and Plan: colonoscopy
[2024-05-24 13:30] VITALS: BP 127/62; PULSE 73; RESP 20; O2SAT 98
[2024-05-24 13:40] VITALS: BP 119/68; PULSE 70; RESP 18; O2SAT 100
[2024-05-24 13:50] VITALS: BP 119/87; PULSE 73; RESP 24; O2SAT 100
== END 2024-05-24 14:02 | disposition home or self-care (01) ==
PROVIDERS: PCP Family Medicine; Visit Provider Internal Medicine Gastroenterology
PROC: 0DJD8ZZ Inspection of Lower Intestinal Tract, Via Natural or Artificial Opening Endoscopic (ICD-10-PCS; CPT 45378; principal; 2024-05-24 13:00)
DX: Z12.11 Encounter for screening for malignant neoplasm of colon (principal); D12.2 Benign neoplasm of ascending colon; D12.5 Benign neoplasm of sigmoid colon; D12.0 Benign neoplasm of cecum; K63.5 Polyp of colon; E78.2 Mixed hyperlipidemia; G47.00 Insomnia, unspecified; F41.9 Anxiety disorder, unspecified; M51.369 Other intervertebral disc degeneration, lumbar region without mention of lumbar back pain or lower extremity pain; F31.9 Bipolar disorder, unspecified; J44.9 Chronic obstructive pulmonary disease, unspecified; G62.9 Polyneuropathy, unspecified; F17.210 Nicotine dependence, cigarettes, uncomplicated; F17.290 Nicotine dependence, other tobacco product, uncomplicated; F12.90 Cannabis use, unspecified, uncomplicated; E66.9 Obesity, unspecified; Z68.34 Body mass index [BMI] 34.0-34.9, adult; Z79.891 Long term (current) use of opiate analgesic; Z98.890 Other specified postprocedural states; Z98.1 Arthrodesis status; Z85.42 Personal history of malignant neoplasm of other parts of uterus; Z80.3 Family history of malignant neoplasm of breast; Z80.49 Family history of malignant neoplasm of other genital organs; Z82.49 Family history of ischemic heart disease and other diseases of the circulatory system
CPT/HCPCS: 45385; 88305; J2003; J2704; J7120

== ENCOUNTER 2024-10-23 14:42 | Outpatient (CLI) | payer MEDICARE, SELFPAY ==
--- NOTE | ~2024-10-23 | DEXA_ITS ---
Bone Density Report Name: ZENIA CHRISTIANSON Age: 68 Sex: Female Ethnicity: White Date of : 1955 Indication: postmenopausal; screening for osteoporosis; height loss; cancer; hysterectomy; Referring Provider: MONA HARGROVE Study: Bone densitometry was performed. Exam Date: October 23, 2024 Accession number: [id number] Bone Density: Region BMD T-score Z-score Classification Femoral Neck (Left) 0.791 -0.5 1.2 Normal Total Hip (Left) 0.961 0.2 1.6 Normal Femoral Neck (Right) 0.713 -1.2 0.5 Osteopenia Total Hip (Right) 0.946 0.0 1.5 Normal Total Hip Mean 0.953 0.1 1.6 Normal World Health Organization criteria for BMD impression classify patients as: Normal (T-score at or above -1.0), Osteopenia (T-score between -1.0 and -2.5), or Osteoporosis (T-score at or below -2.5). 10-year Fracture Risk(1): Major Osteoporotic Fracture 8.5% Hip Fracture 0.9% Reported Risk Factors: [place] (), Neck BMD=0.713, BMI=34.6 (1) FRAX(R) Version 3.08. Fracture probability calculated for an untreated patient. Fracture probability may be lower if the patient has received treatment. Clinical Information Provided by Patient: Has used the following medications: Vitamin D Has the following medical conditions: Cancer, Hysterectomy Patient maximum height was 64 Menopause Age: 49 No regular weight bearing exercise Drinks caffeinated beverages Onset of menses at age 14 Number of children 1 Impression: The patient has low bone mass, based on the Right Femoral Neck T-score. The patient has an estimated ten-year risk of hip fracture of 0.9% and an estimated ten-year risk of major fracture of 8.5%, based on the WHO FRAX algorithm. Discussion: BONE DENSITY IS LOW AT ONE OR MORE SKELETAL SITES. This patient's lowest T-score is low at one or more skeletal sites. It meets the World Health Organization's (WHO) criteria for ?low bone mass? (T-score between -1.0 and -2.5). The patient's 10-year risk of fracture as calculated by FRAX is less than the threshold where pharmacological therapy is recommended by the National Osteoporosis Foundation (NOF). However, all treatment decisions require clinical judgment and consideration of individual patient factors, including patient preferences, comorbidities, previous drug use, risk factors not captured in the FRAX model (e.g., frailty, falls, vitamin D deficiency, increased bone turnover, interval significant decline in bone density) and possible under or overestimation of fracture risk by FRAX. The patient should follow a healthful lifestyle (good nutrition with adequate calcium and vitamin D, and appropriate weight-bearing exercise). Follow-Up: Consider repeating this study in 2 to 3 years to reassess this patient's status, or sooner if there is some new clinical indication. Reported by: SAWYER on 10/23/2024 3:35:00 PM. Reviewed, dictated and finalized at location A.
== END 2024-10-23 14:43 | disposition home or self-care (01) ==
PROVIDERS: PCP Family Medicine; Visit Provider Family Medicine
DX: Z78.0 Asymptomatic menopausal state (principal); M85.851 Other specified disorders of bone density and structure, right thigh
CPT/HCPCS: 77080

== ENCOUNTER 2024-10-31 11:28 | Outpatient (CLI) | payer MEDICARE, SELFPAY ==
--- NOTE | ~2024-10-31 | US_ITS ---
EXAMINATION: US soft tissue LE RT DATE: 10/31/2024 12:31 INDICATION: Right lower leg pain and swelling. TECHNIQUE: Multiple grayscale and Doppler ultrasound images of the right lower limb were obtained. COMPARISON: None FINDINGS: There is a thrombosed superficial vein in the medial right calf in the patient's area of concern. IMPRESSION: 1. Thrombosed superficial vein in the medial right calf in the patient's area of concern. Reviewed, dictated and finalized at location E. IMPRESSION: 1. Thrombosed superficial vein in the medial right calf in the patient's area o f concern.
--- NOTE | ~2024-10-31 | US_ITS ---
EXAMINATION: US venous doppler LE RT, 10/31/2024 11:53 CDT HISTORY: M79.661 - Pain in right lower leg COMPARISON: None Technique: Alberto-scale and color Doppler images were attempted of the lower saphenofemoral junction, common femoral vein,superficial femoral vein, proximal deep femoral vein, proximal deep femoral vein, popliteal vein and posterior tibial veins. Findings: Deep Venous System:There is thrombus within the anterior posterior tibial vein, the remaining visualized deep venous system is unremarkable Superficial Venous SystemWithin the superficial lesser saphenous vein there is thrombus with diminished flow. Soft tissues: Soft tissues are unremarkable. Impression: DVT detailed above. Superficial thrombophlebitis Reviewed, dictated and finalized at location A. Impression: DVT detailed above. Superficial thrombophlebitis
== END 2024-10-31 11:29 | disposition home or self-care (01) ==
PROVIDERS: PCP Family Medicine; Visit Provider Nurse Practitioner Family
DX: I82.441 Acute embolism and thrombosis of right tibial vein (principal)
CPT/HCPCS: 76882; 93971

== ENCOUNTER 2024-11-27 13:12 | Outpatient (CLI) | payer MEDICARE, SELFPAY ==
--- OUTSIDE RECORDS SUMMARY | 2024-11-19 05:15 | XMS_ITS ---
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 MG Capsule TAKE 1 CAPSULE BY MOUTH FOUR TIMES DAILY Oral Taking ALPRAZolam 0.25 MG Tablet TAKE 1 TABLET BY MOUTH THREE TIMES DAILY NEEDED FOR ANXIETY Oral Taking HYDROcodone-Acetaminophen 5-325 MG Tablet TAKE 1 TABLET BY MOUTH EVERY 6 HOURS NEEDED FOR PAIN Oral Taking Eliquis 2.5 MG Tablet as directed Orally Medication List reviewed and reconciled with the patient * Allergies: P enicillinsMorphineSteroidsyesAllergies Verified. Objective: * Vitals: B P:125/80mm Hg, HR:65/min, Wt:189lbs, Wt-k.73 kg, Ht:62in, Ht-cm: 157.48 cm, BMI:34.56Index, Body Surface Area: 1.93. * Examination: G eneral Examination: M ental Status Examination - Mood: Patient reports feeling sadder, angrier and states The anger thing is all that's new. It's been a few months. - Thought Process: Linear and goal-directed, as evidenced by ability to provide relevant responses to questions and discuss treatment options. - Cognition: Alert and oriented to person, place, and time. Able to recall medication history and past treatments. - Insight: Fair insight demonstrated by recognition of worsening symptoms and seeking psychiatric care. Assessment: * Assessment: 1. C hronic post-traumatic stress disorder (PTSD) - F43.12 (Primary) 2 . M ajor depressive disorder, recurrent, moderate - F33.1 3 . P anic attacks - F41.0? 4. C hronic insomnia - F51.04 5 . G eneralized anxiety disorder - F41.1 Plan: * Treatment: 2. P anic attacks Clinical Notes: on xanax through PCP- marijuana use, can't prescribe here 3. C hronic insomnia Refill Doxepin HCl Capsule, 10 MG, 1 capsule at bedtime, Orally, daily, 30 days, 30 Capsule, Notes to Pharmacist: taking over rx. 4. G eneralized anxiety disorder Stop busPIRone HCl Tablet, 5 MG, TAKE 1 TABLET BY MOUTH TWICE DAILY, Oral; S tart busPIRone HCl Tablet, 10 MG, 1 tablet, Orally, Twice a day, 30 days, 60 Tablet, Notes to Pharmacist: taking over rx. 5. O thers Clinical Notes: Learning About Depression Screening material was printed Lydia Albert, a 69-year-old female with a history of depression, anxiety, and substance use disorder, presents with worsening mood, anger outbursts, and sleep disturbances despite current psychiatric medication regimen. Major Depressive Disorder Assessment: Patient reports a long history of depression since 1976, currently experiencing worsening symptoms including sadness and anger outbursts. She has been on paroxetine 40mg daily for 6 years, which she feels is no longer effective. Previously, she responded well to fluoxetine. Patient also has a family history of mental illness, with her mother having schizophrenia. Plan: - Initiate cross-taper from paroxetine to fluoxetine: - Week 1-2: Start fluoxetine 10mg PO daily while continuing paroxetine 40mg daily - Week 3: Increase fluoxetine to 20mg PO daily and decrease paroxetine to 20mg daily - Week 4: Discontinue paroxetine and continue fluoxetine 20mg PO daily - Follow up in 4 weeks to assess response to medication change Generalized Anxiety Disorder with Panic Attacks Assessment: Patient has a history of anxiety and panic attacks, currently managed with buspirone 5mg BID and alprazolam PRN. Given the concurrent worsening of depressive symptoms, anxiety symptoms may also be inadequately controlled. Plan: - Increase buspirone to 10mg PO BID - Continue alprazolam as prescribed by primary care physician (Dr. Pleayo) - Educate patient on practice policy regarding controlled substances and concurrent use with other medications/substances Insomnia Assessment: Patient reports chronic sleep disturbances, including difficulty maintaining sleep and frequent nighttime awakenings. Current treatment with doxepin 10mg at bedtime is ineffective. Patient also uses marijuana at night to aid sleep. Plan: - Continue doxepin 10mg PO at bedtime - Refill doxepin prescription - Defer further sleep interventions until after antidepressant medication change has been implemented and evaluated Substance Use Assessment: Patient reports current tobacco use (5-10 cigarettes/day and vaping), nightly alcohol use (one shot), and nightly marijuana use for sleep. History of cocaine addiction with last use in 2015. Patient expresses desire to quit smoking. 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 Previously on oxycodone. Patient also uses turmeric for inflammation. Plan: - Continue current pain management regimen - Encourage non-pharmacological pain management strategies Medical Decision Making Lydia Albert is a 69-year-old female with a history of depression, anxiety, and chronic pain presenting with worsening mood, increased anger, and sleep disturbances. The patient's current regimen of paroxetine 40mg daily for depression appears to be losing efficacy after 6 years of use. Given her positive response to fluoxetine in the past, a cross-taper from paroxetine to fluoxetine is planned to address her mood symptoms. The decision to switch antidepressants is based on the patient's report of increased irritability and anger over the past few months, as well as her history of good response to fluoxetine. Consideration was given to the patient's complex medication regimen, including multiple psychotropic medications and pain management drugs. The presence of chronic insomnia, despite current use of doxepin, suggests the need for further sleep evaluation and management once mood stabilization is achieved. The patient's history of substance use (cocaine, last use in 2016) and current alcohol and marijuana use for sleep were factored into the decision-making process, particularly regarding the continuation of alprazolam prescribed by her primary care physician. * Procedure Codes: 9 0792 PSYCHIATRIC DIAGNOSTIC EVAL W/MEDICAL [id number] BEHAV ASSMT W/SCORE & DOCD/STAND INSTRUMENT * Preventive Medicine: Counseling: A dvance Care Planning Date of last Advance Care Planning:?2024 ____ MIPS Type of advance care directives: D iscussed with patient , does not have AD Screenings: D epression screening Have you had a recent depression screening? Y es Billing Information: * Procedure Codes: 40746 PSYCHIATRIC DIAGNOSTIC EVAL W/MEDICAL SERVICES. 85958 BEHAV ASSMT W/SCORE & DOCD/STAND INSTRUMENT. * Electronic signature of Daryl Andrade on 11/27/2024 at 03:00 PM CDT Sign off status: Pending * Provider: Evan Andrade Date: Generated for Jamal boss/Kadie/Steven on: 1 03:00 PM CDT
--- NOTE | ~2024-11-27 | MMUS_ITS ---
EXAMINATION: US breast BI limited, MM diagnostic goyo BI w jose francisco HISTORY: Breast swelling TECHNIQUE: Additional 3-D tomosynthesis images of both breasts were performed and synthetic 2-D images were generated. CAD analysis was submitted and interpreted. High resolution bilateral breast ultrasound was performed. COMPARISON: Mammogram 06/11/2021 and 06/04/2021 BREAST PARENCHYMAL COMPOSITION: The breasts are heterogeneously dense, which may obscure small masses. FINDINGS: MAMMOGRAPHIC FINDINGS: No suspicious calcifications or architectural distortion. New 6 mm mass in the upper outer quadrant of the right breast. Possible sonographic correlate. The finding is probably benign. ULTRASOUND: There is a 5 x 4 x 2 mm hypoechoic cyst versus solid mass in the left breast at 3:00 position 17 cm from the nipple. The finding is wider than tall. Margins are well-circumscribed. No internal color Doppler flow. No posterior acoustic shadowing. The finding is probably benign. There is a 3 x 4 x 3 mm hypoechoic cyst versus solid mass in the right breast at the 9:00 position anterior depth. The finding is wider than tall. Margins are well-circumscribed. No internal color flow. No posterior acoustic shadowing. The finding is probably benign. There is a 5 x 5 x 4 mm hypoechoic cyst versus solid mass in the right breast at 12:00 position 2 cm from the nipple middle depth. Margins are well- circumscribed. No internal color flow. No posterior acoustic shadowing. The finding is probably benign. IMPRESSION: 1. Probably benign findings in both breasts. A bilateral diagnostic mammogram and a bilateral diagnostic breast ultrasound in 6 months is recommended. BI-RADS 3-Probably benign-Short interval follow-up suggested. Reviewed, dictated and finalized at location Q. IMPRESSION: 1. Probably benign findings in both breasts. A bilateral diagnostic mammogram a nd a bilateral diagnostic breast ultrasound in 6 months is recommended. BI-RADS 3-Probably benign-Short interval follow-up suggested.
--- OUTSIDE RECORDS SUMMARY | 2024-11-27 15:00 | XMS_ITS | Patient Health Record ---
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 Name Role Phone Adolph Pelayo MD Primary Care Provider Rhiannon Wells Unavailable [phone] Allergies Allergen (clinical drug ingredient) Drug/Non Drug Allergy documented on EMR Reaction Allergy Type Onset Date Status Steroids Steroids (uncoded) Unknown Allergy A ctive morphine Morphine Unknown Drug Allergy Active Substance with penicillin structure and antibacterial mechanism of action (substance) Penicillins Unknown Drug Allergy Active Reason For Referral No Information Medications Medication SIG (Take, Route, Frequency, Duration) Notes Start Date End Date Status Cyclobenzaprine HCl 10 MG Tablet Oral; Duration: 100 Days Active Doxepin HCl 10 MG Capsule 1 capsule at bedtime Orally daily; Duration: 30 days taking over rx Active Fenofibrate 50 MG Capsule TAKE 1 CAPSULE BY MOUTH DAILY Oral; Duration: 90 Days Active ALPRAZolam 0.25 MG Tablet TAKE 1 TABLET BY MOUTH THREE TIMES DAILY NEEDED FOR ANXIETY Oral; Duration: 30 Days Active Propranolol HCl ER 60 MG Capsule Extended Release 24 Hour TAKE 1 CAPSULE BY MOUTH DAILY Oral; Duration: 90 Days Active HYDROcodone-Acetaminophe n 5-325 MG Tablet TAKE 1 TABLET BY MOUTH EVERY 6 HOURS NEEDED FOR PAIN Oral; Duration: 30 Days Active Rosuvastatin Calcium 40 MG Tablet Oral; Duration: 100 Days Active Pregabalin 50 MG Capsule TAKE 1 CAPSULE BY MOUTH FOUR TIMES DAILY Oral; Duration: 30 Days Active SUMAtriptan Succinate 100 MG Tablet 1 tablet as needed, may take second dose at least 2 hours after first dose up to 2 tablets per day as needed Oral; Duration: 70 days Active Cholecalciferol 50 MCG (1999) Capsule 1 capsule Orally Once a day; Duration: 30 day(s) 2024 Active Eliquis 2.5 MG Tablet as directed Orally Active Vascepa 1 GM Capsule 2 capsules with meals Orally Twice a day; Duration: 30 day(s) 2024 12/19/2024 Active busPIRone HCl 10 MG Tablet 1 tablet Orally Twice a day; Duration: 30 days taking over rx 2024 12/19/2024 Active FLUoxetine HCl 10 MG Capsule 1 capsule once a day for 14 days, 2 capsules once a day for 16 days Orally; Duration: 30 days 2024 Active Social History Tobacco Use: Social History [...] Problem Status W/U Status Risk Notes Problem Moderate recurrent major depression (91236912) Major depressive disorder, recurrent, moderate (F33.1) Active confirmed Problem Generalized anxiety disorder (12175362) Generalized anxiety disorder (F41.1) Active confirmed Problem Chronic insomnia (419278474) Chronic insomnia (F51.04) Active confirmed Problem Posttraumatic stress disorder (41219713) Chronic post-traumatic stress disorder (PTSD) (F43.12) Active confirmed Problem Panic disorder (441228514) Panic attacks (F41.0) Active confirmed Vital Signs Heart Rate 65 /min 2024 Height-cm 157.48 cm 2024 Blood pressure diastolic 80 mm Hg 2024 Weight-kg 85.73 kg 2024 Height 62 in 2024 Blood pressure systolic 125 mm Hg 2024 Weight 189 lbs 2024 BMI 34.56 kg/m2 2024 Encounters Encounter Location Date Provider Diagnosis [facility] [employer] [facility] [address] [facility] [address] [address] 2024 Rhiannon Andrade Chronic post-traumatic stress disorder [...] her primary care physician. Plan Of Treatment Next Appt Details Provider Name:Rhiannon Paul donahue, 12/19/2024 11:30:00 AM, [address], [facility] [address], [place], [address], Insurance Providers Payer Name Payer Address Payer Phone Subscriber Number Group Number Insured Name Patient Relationship to Insured Coverage Start Date Coverage End Date [facility] [address] [place] [address] [id number] Lydia Albert Self - patient is the insured Medical (General) History Medical History History ICD Code Insomnia Anxiety disorder COPD Bipolar HX of tobacco use Mixed HLD Depressive disorder Past Psychiatric History: An xiety Disorder,Panic Disorder,PTSD,Psychotic Episode,Bipolar Disorder Surgical History Surgery Date(Month/Year) tonsillectomy hysterectomy back surgery hand surgery
== END 2024-11-27 13:13 | disposition home or self-care (01) ==
LOC: ANHFOHIMG 13:13
PROVIDERS: PCP Family Medicine; Visit Provider Family Medicine
DX: R92.8 Other abnormal and inconclusive findings on diagnostic imaging of breast (principal); N63.15 Unspecified lump in the right breast, overlapping quadrants
CPT/HCPCS: 76642; 77062; 77066; G0279

== ENCOUNTER 2024-12-27 12:11 | Outpatient (CLI) | payer MEDICARE, SELFPAY ==
--- OUTSIDE RECORDS SUMMARY | 2024-12-27 12:59 | XMS_ITS | Patient Health Record ---
Author Organization [facility] As [employer] [facility] Address [address] [place] [address] Care Team Providers Care Client Relations Representative Name Role Phone Pierce PETERSON, Adolph Primary Care Provider Maxine Mayfield Unavailable [phone] Rhiannon Andrade Unavailable [phone] Allergies Allergen (clinical drug ingredient) Drug/Non Drug [...] MG Tablet Oral; Duration: 100 Days Active busPIRone HCl 10 MG Tablet 1 tablet Oral ly Twice a day; Duration: 30 days 12/19/2024 01/18/2025 Active SUMAtriptan Succinate 100 MG Tablet 1 tablet as needed, may take second dose at least 2 hours after first dose up to 2 tablets per day as needed Oral; Duration: 70 days Active Pregabalin 50 MG Capsule TAKE 1 CAPSULE BY MOUTH FOUR TIMES DAILY Oral; Duration: 30 Days Active Rosuvastatin Calcium 40 MG Tablet Oral; Duration: 100 Days Active HYDROcodone-Acetaminophen 5-325 MG Tablet TAKE 1 TABLET BY MOUTH EVERY 6 HOURS NEEDED FOR PAIN Oral; Duration: 30 Days Active ALPRAZolam 0.25 MG Tablet TAKE 1 TABLET BY MOUTH THREE TIMES DAILY NEEDED FOR ANXIETY Oral; Duration: 30 Days Active Fenofibrate 50 MG Capsule TAKE 1 CAPSULE BY MOUTH DAILY Oral; Duration: 90 Days Active Eliquis 2.5 MG Tablet as directed Orally Active FLUoxetine HCl 40 MG Capsule 1 capsule O rally Once a day; Duration: 30 days 12/19/2024 Active Propranolol HCl ER 60 MG Capsule Extended Release 24 Hour TAKE 1 CAPSULE BY MOUTH DAILY Oral; Duration: 90 Days Active Doxepin HCl 10 MG Capsule 1 capsule at b edtime Orally daily; Duration: 30 days 12/19/2024 Active Cholecalciferol 50 MCG (1999 [place]) Capsule 1 capsule Orally Once a day; Duration: 30 day(s) 2024 Active Social History Tobacco Use: Social History Observation Description Date Details (start date - stop date) Unknown Sex Assigned At : Social History Observation [...] Answer Notes Tobacco Control (Standard) Tobacco use: Uses tobacco i n other forms When did you start smoking? 11/14/1969 Additional Findings: Tobacco user Moderate cigar ette smoker (10-19 cigs/day) Additional Details Category Social Info Options Details Miscellaneous: Occupation: retired/on di sability Drug/Alcohol: Do you smoke marijuana? Yes Nightly for sleep Do you drink alcohol? Yes Problems Problem Type SNOMED Code ICD Code Onset Dates Problem Status W/U Status Risk Notes Problem Moderate recurrent major depression (22886086) Major depressive disorder, recurrent, moderate (F33.1) Active confirmed Problem Generalized anxiety disorder (00148194) Generalized anxiety disorder (F41.1) Active confirmed Problem Chronic insomnia (281372966) Chronic insomnia (F51.04) Active confirmed Problem Posttraumatic stress disorder (35235991) Chronic post-traumatic stress disorder (PTSD) (F43.12) Active confirmed Problem Panic disorder (398405145) Panic attacks (F41.0) Active confirmed Vital Signs Heart Rate 74 /min 12/19/2024 Height-cm 157.48 cm 12/19/2024 Blood pressure diastolic 86 mm Hg 12/19/2024 Weight-kg 84.82 kg 12/19/2024 Height 62 in 12/19/2024 Blood pressure systolic 132 mm Hg 12/19/2024 Weight 187 lbs 12/19/2024 BMI 34.2 kg/m2 12/19/2024 Encounters Encounter Location Date Provider Diagnosis [facility] [employer] [facility] [address] [address] 2024 Rhiannonjono [place] Chronic post-traumatic stress disorder (PTSD) F43.12 ; Major depressive disorder, recurrent, moderate F33.1 ; Panic attacks F41.0 ; Chronic insomnia F51.04 and Generalized anxiety disorder F41.1 [employer] [facility] [address] [address] 12/19/2024 Rhiannon Andrade Chronic post-traumatic stress disorder (PTSD) F43.12 ; Major depressive disorder, recurrent, moderate F33.1 ; Panic attacks F41.0 ; Chronic insomnia F51.04 and Generalized anxiety disorder F41.1 Assessments Encounter Date Diagnosis (ICD Code) Assessment Notes Treatment Notes Treatment Clinical Notes Section Notes 2024 Chronic post-traumatic stress disorder (PTSD) (ICD-10 - F43.12) 2024 Major depressive disorder, recurrent, moderate (ICD-10 - F33.1) 12/19/2024 Chronic post-traumatic stress disorder (PTSD) (ICD-10 - F43.12) 2024 Panic attacks (ICD-10 - F41.0) on xanax through PCP- marijuana use, can't prescribe here 12/19/2024 Major depressive disorder, recurrent, moderate (ICD-10 - F33.1) 20 mg FLUOXETINE SENT IN ERROR, WAS CANCELLED 2024 Chronic insomnia (ICD-10 - F51.04) 12/19/2024 Panic attacks (ICD-10 - F41.0) on xanax through PCP- marijuana use, can't prescribe here 12/19/2024 Chronic insomnia (ICD-10 - F51.04) 2024 Generalized anxiety disorder (ICD-10 - F41.1) 12/19/2024 Generalized anxiety disorder (ICD-10 - F41.1) 2024 [...] controlled substances and concurrent use with other medications/substanc es Insomnia Assessment: Patient reports chronic sleep disturbances, [...] alprazolam prescribed by her primary care physician. 12/19/2024 Other Lydia Albert presents with ongoing anxiety symptoms including avoidance of crowds, anger issues, sleep disturbances, worsening memory problems, and panic attacks triggered by specific stimuli, while currently transitioning from paroxetine to fluoxetine. Depression Patient reports mood is not worse than before but continues to experience depressive symptoms. Currently transitioning from paroxetine to fluoxetine 20 mg nightly for the past 2 weeks. No reported side effects from medication transition. Plan: - Increase fluoxetine to 40 MG daily to help regulate anxiety and depression - Monitor response to medication adjustment Anxiety disorder with panic attacks Patient continues to experience significant anxiety symptoms including avoidance of crowded places like grocery stores, anger when in crowds, and panic attacks triggered by specific stimuli such as [employer] trucks related to a 1997 incident. General anxiety level remains elevated. Currently managed with buspirone 10 mg twice daily and alprazolam 0.25 mg three times daily on schedule through primary care provider. Recently transitioned from paroxetine to fluoxetine, currently on 20 mg for the past 2 weeks after initial 2-week period at 10 mg. Plan: - Increase fluoxetine to 40 MG daily to help regulate anxiety and depression - Continue buspirone at current dose - Continued alprazolam use through primary care provider - If fluoxetine becomes activating with dose increase, switch timing from nighttime to morning Sleep maintenance insomnia Patient reports ongoing difficulty staying asleep despite some improvement. Goes to sleep at 10 PM but wakes at 1:30 AM, 3:30 AM, and 5:30 AM. Currently on doxepin 10 mg at bedtime for approximately 1.5 years. Previously discontinued Ambien. Reports doxepin works better when combined with Prozac but not working completely. Patient prefers not to be knocked out and recalls good response to temazepam (generic) which is no longer available. Plan: - Continue doxepin at current dose without increase - Monitor sleep response as fluoxetine dose is increased - If sleep worsens with fluoxetine increase, consider switching fluoxetine to morning dosing Worsening memory problems Patient reports worsening cognitive symptoms including scattered thoughts, inability to maintain focus to complete thoughts, and forgetting mid-sentence what she was discussing. This is a particular concern as she worries about forgetting medications. Symptoms appear to be getting worse rather than new onset. Plan: - Address memory concerns after stabilizing anxiety, mood, and sleep - Evaluate if anxiety or poor sleep contributing to cognitive symptoms - Tackle each issue systematically Alcohol use Patient reports quitting drinking but consumed half a shot the previous night, indicating recent alcohol use despite stated cessation. Plan: - Continue to minimize alcohol consumption Medical Decision Making Lydia Albert presents with ongoing anxiety, depression, sleep disturbances, and worsening cognitive symptoms including memory problems and difficulty maintaining focus. The patient reports continued social avoidance, anger issues in crowded settings, fragmented sleep with frequent awakenings despite doxepin therapy, and panic attacks triggered by specific stimuli related to a 1997 incident. Her current regimen includes recent transition from paroxetine to fluoxetine, with the patient currently on fluoxetine 20mg for approximately 2 weeks after initial titration from 10mg. The combination of buspirone, fluoxetine, and doxepin all affecting similar neurotransmitter pathways was considered in treatment planning. Given the patient's suboptimal response to current fluoxetine dosing and persistent anxiety and depressive symptoms, increasing the fluoxetine was determined to be the most appropriate intervention rather than adjusting the other medications. The cognitive and memory concerns were assessed as potentially secondary to poorly controlled anxiety, mood symptoms, and sleep disruption, warranting optimization of psychiatric symptoms before further cognitive evaluation. Plan Of Treatment Next Appt Details Provider Name:Maxine Thomson, 01/16/2025 03:00:00 PM, [address] [facility] [address], [facility] [address], [place], [address], Insurance Providers Payer Name Payer Address Payer Phone Subscriber Number Group Number Insured Name Patient Relationship to Insured Coverage Start Date Coverage End Date [facility] [address] [place] [address] [id number] Lydia Albert Self - patient is the insured Medical (General) History Medical History History ICD Code Insomnia Anxiety disorder COPD Bipolar HX of tobacco use Mixed HLD Depressive disorder Past Psychiatric History: An xiety Disorder,Panic Disorder,PTSD,Psychotic Episode,Bipolar Disorder undefined Surgical History Surgery Date(Month/Year) tonsillectomy hysterectomy back surgery hand surgery
--- NOTE | 2024-12-27 13:00 | ECHO_ITS ---
Patient Info Name: Lydia Albert Age: 69 years : 1955 Gender: Female Ht: 62 in Wt: 186 lbs BSA: 1.96 m2 HR: 54 bpm BP: 140 / 82 mmHg Technical Quality: Good Exam Date: 12/27/2024 1:04 PM Patient Status: O Admit Date: 12/27/2024 Exam Type: CA echo doppler color flow Complete two-dimensional, color flow and Doppler transthoracic echocardiogram is performed. Employment And Claims Aide: Cintia Guzmán Attending Provider: Adolph Pelayo Summary 1. Complete two-dimensional, color flow and Doppler transthoracic echocardiogram is performed. 2. Left ventricular chamber dimension is normal. 3. Left ventricular systolic function is normal, estimated at 60-65. 4. The left ventricular diastolic function is grade I diastolic dysfunction. 5. E/e' 12 is mildly elevated. 6. The aortic valve is not well visualized. Cannot determine number of aortic valve leaflets. 7. There is moderate aortic valve sclerosis. 8. There is moderate aortic valve regurgitation. 9. There is mild mitral valve regurgitation. Left Ventricle E/e' 12 is mildly elevated. Left ventricular chamber dimension is normal. Left ventricular systolic function is normal, estimated at 60-65. The left ventricular diastolic function is grade I diastolic dysfunction. Right Ventricle Right ventricular chamber dimension is normal. Right ventricular systolic function is normal. Left Atria Left atrial chamber dimension is normal. Right Atria Right atrial chamber dimension is normal. Aortic Valve The aortic valve is not well visualized. Cannot determine number of aortic valve leaflets. There is moderate aortic valve sclerosis. There is no aortic valve stenosis. There is moderate aortic valve regurgitation. Pulmonic Valve There is no pulmonic regurgitation. Mitral Valve There is no mitral valve stenosis. There is mild mitral valve regurgitation. Tricuspid Valve There is no tricuspid valve regurgitation. Pericardium/Pleural There is no pericardial effusion. Inferior Vena Cava Normal inferior vena cava with >50% collapse upon inspiration consistent with normal right atrial pressure, 5 mmHg. Aorta The aortic root size at the sinus of Valsalva is normal. Left Ventricular Outflow Tract Name Value Normal LVOT 2D LVOT Diameter 2.0 cm LVOT Doppler LVOT Peak Velocity 122 cm/s LVOT Peak Gradient 6 mmHg LVOT Mean Gradient 2 mmHg LVOT VTI 27 cm LVOT Stroke Volume 85 ml LVOT CO 4.6 l/min LVOT CI 2.3 l/min/m2 Pulmonic Valve Name Value Normal RVOT Doppler RVOT Peak Velocity 74 cm/s RVOT Peak Gradient 2 mmHg PV Doppler PV Peak Velocity 117 cm/s PV Peak Gradient 6 mmHg Mitral Valve Name Value Normal MV Diastolic Function MV E Peak Velocity 72 cm/s MV A Peak Velocity 85 cm/s MV E/A 0.8 MV Decel Time (PW) 274 ms MV Annular TDI MV E/e' (Septal) 15.0 MV E/e' (Lateral) 10.1 MV E/e' (Average) 12.6 Tricuspid Valve Name Value Normal Estimated PAP/RSVP RA Pressure 5 mmHg <=5 Aortic Valve Name Value Normal AV Doppler AV Peak Velocity 144 cm/s AV Peak Gradient 8 mmHg AV Area (Cont Eq Tray) 2.7 cm2 AV DI (Tray) 0.85 AV Regurgitation 2D LVOT Area 3.2 cm2 Ventricles Name Value Normal LV Dimensions 2D/MM IVS Diastolic Thickness (2D) 1.1 cm 0.6-1.0 LVID Diastole (2D) 5.0 cm 3.8-5.2 LVIW Diastolic Thickness (2D) 1.0 cm 0.6-0.9 LVID Systole (2D) 3.3 cm 2.2-3.5 LVOT Diameter 2.0 cm LV Mass (2D Cubed) 190.05 g 67.00-162.00 LV Mass Index (2D Cubed) 97 g/m2 43-95 Relative Wall Thickness (2D) 0.38 <=0.42 LV Fractional Shortening/Ejection Fraction 2D/MM LV Fractional Shortening (2D) 34 % 27-45 LV EF (2D Teichholz) 63 % LV Diastolic Volume (4C MOD) 92 ml LV EF (4C MOD) 57 % LV Diastolic Volume (2C MOD) 80 ml LV EF (2C MOD) 66 % LV Diastolic Volume (BP MOD) 91 ml 46-106 LV Diastolic Volume Index (BP MOD) 46 ml/m2 29-61 LV Systolic Volume (BP MOD) 36 ml 14-42 LV Systolic Volume Index (BP MOD) 18 ml/m2 8-24 LV EF (BP MOD) 60 % 54-74 LV Diastolic Length (4C) 8.5 cm LV Systolic Length (4C) 7.7 cm LV Stroke Volume (4C MOD) 52 ml Atria Name Value Normal LA Dimensions LA Volume (4C A-L) 29 ml LA Volume (BP A-L) 33 ml RA Dimensions RA Systolic Major Dale Length (4C) 4.4 cm 2.2-2.8 RA Area (4C) 12.1 cm2 <=18.0 Report Signatures
== END 2024-12-27 12:12 | disposition home or self-care (01) ==
PROVIDERS: PCP Family Medicine; Visit Provider Family Medicine
DX: Z51.81 Encounter for therapeutic drug level monitoring (principal); F11.90 Opioid use, unspecified, uncomplicated; I10 Essential (primary) hypertension; Z85.42 Personal history of malignant neoplasm of other parts of uterus
CPT/HCPCS: 86304; 93306